=== PATIENT | female | born 1940 | race Caucasian/White ===

== ENCOUNTER 2017-10-21 18:24 | Inpatient (IN) | payer MEDICARE, OTHER, SELFPAY ==
[2017-10-21] VITALS (7 sets, daily range): BP systolic 116–173; BP diastolic 57–110; PULSE 97–107; RESP 20–30; TEMP 36.4–36.9; O2SAT 92–99; BMI 25.7; BMI 24.9
--- NOTE | 2017-10-21 19:08 | EKG12_ITS ---
Test Reason : Blood Pressure : / mmHG Vent. Rate : 094 BPM Atrial Rate : 094 BPM P-R Int : 144 ms QRS Dur : 100 ms QT Int : 382 ms P-R-T Axes : 071 000 061 degrees QTc Int : 477 ms Normal sinus rhythm Nonspecific ST and T wave abnormality Prolonged QT Abnormal ECG Confirmed by GEORGE BOCANEGRA, RONALD ([id number]), senior editor VIPUL GARG ([id number]) on 10/25/2017 1:01:55 PM Referred By: Confirmed By:RONALD VAZQUEZ MD
--- NOTE | 2017-10-21 19:11 | RAD_ITS ---
STUDY: X-RAY CHEST REASON FOR EXAM: Female, 77 years old. Shortness of breath TECHNIQUE: Frontal view of the chest COMPARISON: 07/23/2017 FINDINGS: The lungs are clear. There are no pleural effusions. There is no pneumothorax. The heart is normal in size. The visualized osseous structures are within normal limits. RAD/Chest 1 View (Portable) IMPRESSION: No acute thoracic pathology. Electronically Signed: Rock Johnson, at 19:51 EDT Tel , Service support ,
--- NOTE | 2017-10-21 19:11 | ED.VISSUMM ---
- ER Visit Summary Date of Service: 10/21/17 Chief Complaint: Shortness of breath History of Present Illness: The patient is a 77 F presenting with shortness of breath and wheezing since Saturday. She has dyspnea with exertion. She denies chest pain. She has a productive cough. She denies fever. She has been using her albuterol with no improvement. She has a history of COLD. She sees Dr. Garrison. She wears home O2 as needed. She states she has needed to use O2 more frequently over the last 2 days. Physical Examination: Vitals are stable. Patient is afebrile. Alert no acute distress. HEENT exam is unremarkable. Neck is supple. Lungs are wheezing bilaterally. Heart is regular rate and rhythm. Abdomen is soft nontender nondistended. Extremities are unremarkable. Skin is warm and dry. Maculopapular rash bilateral upper extremities. No focal neurologic deficit. Remainder of exam is unremarkable. Emergency Department Course and Treatment: Patient is given albuterol, Atrovent aerosols. She is given Solu-Medrol IV. EKG is sinus rate of 94 with no acute ischemic changes. EKG is unchanged from previous. Chest x-ray shows no acute process. CBC, chemistries unremarkable other than glucose 121. Troponin is negative. Lactic acid is normal. On repeat exam patient continues to have diffuse wheezing after aerosol treatments. Discussed with Dr. Sales for admission. Disposition: Admission Impression: COPD exacerbation This note was generated with [employer] dictation software. It may contain incorrect words, spelling, and punctuation that were not noted in review of the chart prior to signing ED Disposition - Plan for ED Patient: Chief Complaint: Shortness of Breath Referrals: Zahraa Dick [Primary Care Provider] -
[2017-10-21] MEDS: MethylPREDNISolone 125 MG/2 ML Vial IV (19:19)
[2017-10-21] MEDS: Ipratropium/Albuterol Sulfate 3 ML AMPUL.NEB INHALATION ×2 (19:39→22:40)
[2017-10-21] MEDS: Albuterol 2.5 MG/3 ML VIAL.NEB. INHALATION ×2 (19:40)
[2017-10-21 19:43] LABS: Absolute Lymphocyte Count 1.53 X10^3/ul (0.83-4.51); Absolute Neutrophil Count 5.1 X10^3/uL (2.0-7.7); Basophil# 0.03 X10^3/uL; Basophil% 0.4 % (0-1); Eosinophil# 0.67 X10^3/uL; Eosinophils% 8.1 % (0-5); Hematocrit 41.5 % (37-47); Hemoglobin 12.6 g/dl (12.0-15.0); Lymphocyte # 1.53 X10^3/ul (4.0); Lymphocyte % 18.6 % (19-41); Mean Corp Hgb Conc 30.4 g/gl (32-36); Mean Corpuscular Hgb 28.1 pg (27.0-32.0); Mean Corpuscular Volume 92.6 fL (81-99); Mean Platelet Vol. 11.2 fl (6.2-12.0); Monocyte# 0.91 X10^3/uL; Neutrophil # 5.09 X10^3/uL (2.7-7.7); Neutrophil % 61.8 % (47-70); POSITIVE COUNT NO; POSITIVE DIFFERENTIAL NO; POSITIVE MORPHOLOGY NO; Platelet Count 337 K/mm3 (150-450); RBC Distribution Width CV 14.2 % (11.6-14.6); RBC Distribution Width SD 47.3 fl (35.1-43.9); Red Blood Count 4.48 M/mm3 (4.2-5.4); White Blood Count 8.2 K/mm3 (4.4-11.0)
[2017-10-21 20:01] LABS: Anion Gap 4 (5-15); BUN 8 mg/dL (7-18); BUN/Creat Ratio 11.9 RATIO (10-20); Calcium,Total 8.9 mg/dL (8.5-10.1); Chloride 101 mmol/L (98-107); Creatinine, Serum 0.67 mg/dL (0.55-1.02); EST Glomerular Filtration Rate 90 mL/min (>60); Est Glom Filt Rate - Afr Amer 109 mL/min (>60); Estimated Creatinine Clearance 42.99 ml/min; Glucose 121 mg/dL (74-106); Potassium 4.3 mmol/L (3.5-5.1); Sodium Level 136 mmol/L (136-145)
[2017-10-21 20:19] LABS: Lactic Acid 0.9 mmol/L (0.4-2.0)
--- NOTE | 2017-10-21 21:11 | PCM.HP.STD ---
Problem List (1) COPD exacerbation Status: Acute (2) Osteoarthritis Status: Chronic (3) COLD (chronic obstructive lung disease) Status: Chronic (4) Eczematous dermatitis Status: Chronic Qualifiers: Eczema type: unspecified Qualified Code(s): L30.9 - Dermatitis, unspecified Comment: Antecubital areas History of Present Illness Date of Admission: 10/21/17 Chief Complaint: Cough and wheeze The patient is a 77 year old F with past medical history of COPD who presents with shortness of breath, wheezing since Saturday, unrelieved with her usual inhalers to include Breo, diarrhea, albuterol nebulizer. She wears O2 at nighttime chronically 2 L, has been using it intermittently during the day. She denies fever, has had a productive cough. She follows with Dr. Garrison for COPD. In the emergency department, she was 96-97% on 3 L, heart rate 98, mildly hypertensive which spontaneously improved, respirations 28 improved to 20 after treatment. Laboratories were noncontributory. PA lateral chest x-ray negative. EKG revealed sinus rhythm, nonspecific changes. She received albuterol ?1, DuoNeb aerosol ?1, Solu-Medrol 125 mg IV ?1 feeling improved but still with persistent wheezes. The patient will be admitted for further management of COPD exacerbation. [] Past Medical History Past Medical History (Chronic Problems): Chronic Problems Eczematous dermatitis (Chronic) Antecubital areas Osteoarthritis (Chronic) COLD (chronic obstructive lung disease) (Chronic) Carpal tunnel syndrome (Chronic) Allergies latex Allergy (Verified 10/21/17 18:57) Other Penicillins Allergy (Verified 10/21/17 18:57) Swelling amoxicillin trihydrate [From Augmentin] Adverse Reaction (Verified 10/21/17 18:57) Diarrhea potassium clavulanate [From Augmentin] Adverse Reaction (Verified 10/21/17 18:57) Diarrhea Home Medications: Ambulatory Orders Medication Instructions Recorded Citalopram [Celexa] 10 mg PO DAILY 11/03/14 Fluticasone 0.05% [Flonase Nasal 2 spray NASAL DAILY 11/03/14 [place]] Multivit-Min/FA/Lycopene/Lut 1 each PO DAILY 11/03/14 [Centrum Silver Tablet] Oxygen, Home [Home Oxygen] 2 l INHALATION DAILY 11/04/14 Caltrate-600 With Vit D Tab 1 tablet PO DAILY 06/02/15 Culturelle Capsule 1 capsule PO DAILY 06/02/15 Triamcinolone 0.1% Ointment 1 applicatio EACH EYE DAILY 06/02/15 Albuterol Aerosols [Ventolin 2.5 mg INHALATION Q2H PRN PRN #1 06/03/15 Aerosols] box Albuterol Inhaler [Ventolin Hfa] 2 puff INHALATION Q4H PRN PRN #1 06/03/15 inhaler Guaifenesin [Mucinex] 600 mg PO BID #30 tablet 06/03/15 Pantoprazole Sodium [Protonix] 40 mg PO DAILY #30 tablet 06/03/15 Tiotropium [place] [Spiriva 18 MCG] 1 puff INHALATION DAILY #1 inhaler 06/03/15 Fluticasone/Vilanterol [Breo 1 each IH DAILY 10/21/17 Ellipta 200-25 Mcg INH] Surgical History: - - Carpal tunnel surgery tubal ligation Psychiatric History: No pertinent psych hx 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 Smoking Status: Former smoker - *Family History Maternal History Items: COPD Paternal History Items: No pertinent history, - - Father killed in an automobile accident Sibling History Items: Cancer, Heart Disease Review of Systems Respiratory: Reports: - - as per HPI VTE Information - Inpt Only VTE Present on Admission: No VTE Mechan Device Prophylaxis: SCD's VTE Pharm Prophylaxis ordered?: Yes Patient Problems: Active and Suspected Problems COPD exacerbation (Acute) Subjective: Pleasant female, no acute distress Objective: non toxic appearing - Physical Exam General: Alert, Oriented x3, Cooperative, No apparent distress HEENT: PERRLA, EOMI, TM's Clear, - - pharynx clear Oral: Moist Mucosa, - - upper plates Neck: Supple, No JVD, Negative Carotid Bruits, Negative Hepatojugular Reflux, No Nodes, No Nuchal Rigidity Lungs: Wheezes Cardiovascular: Regular rate, Regular Rhythm, Normal S1, Normal S2 Abdomen: Bowel Sounds Present, Soft, Non Tender, No Hepato-splenomegaly Extremities: No edema Skin: - - Eczematous dermatitis, without secondary infection, bilateral antecubital area, subacute/chronic Vital Signs Temp Pulse Resp BP Pulse Ox 97.5 F L 98 27 H 137/61 H 99 10/21/17 18:25 10/21/17 20:02 10/21/17 20:02 10/21/17 20:02 10/21/17 20:02 Oxygen Flow Rate (L/min) 3 Oxygen Delivery Method Nasal Cannula Weight: 127 lb 6.835 oz Body Mass Index (BMI) 25.7 Laboratory Tests Past 24 Hrs 10/21/17 10/21/17 10/21/17 19:20 19:20 19:20 WBC 8.2 RBC 4.48 Hgb 12.6 Hct 41.5 MCV 92.6 MCH 28.1 MCHC 30.4 L RDW 14.2 RDW Differential 47.3 H Plt Count 337 MPV 11.2 Immature Gran % (Auto) 0.100 Neut % (Auto) 61.8 Lymph % (Auto) 18.6 L Bowie % (Auto) 11.0 H Eos % (Auto) 8.1 H Baso % (Auto) 0.4 Absolute Neuts (auto) 5.1 Absolute Lymphs (auto) 1.53 Total Counted Not Reportable Sodium 136 Potassium 4.3 Chloride 101 Carbon Dioxide 31.0 Anion Gap 4 L BUN 8 Creatinine 0.67 Estim Creat Clear Calc 42.99 Est GFR (MDRD) Af Amer 109 Est GFR (MDRD) Non-Af 90 BUN/Creatinine Ratio 11.9 Glucose 121 H Lactic Acid 0.9 Calcium 8.9 Troponin I < 0.02 Assessment/Plan Active and Suspected Problems COPD exacerbation (Acute) 77-year-old patient with past medical history of chronic obstructive pulmonary disease presents with acute exacerbation of COPD. Chest x-ray is unrevealing. The patient will be admitted for continued medical management of exacerbation. She has nonspecific subacute/chronic eczematous dermatitis of the bilateral antecubital with some evidence of excoriation; will apply topical therapy. 1. AE COPD Pulmonary toilet with O2 titration policy, Mucinex,DUONEB aerosols every 4 hour while awake, intravenous Solu-Medrol Glycemic control prn with NovoLog scale mild to moderate scale prandial/at bedtime whilst on Solu-Medrol doxycycline 100 mg BID # 20 2. Chronic COPD 3. Chronic hypoxemic respiratory failure, on O2 2 L at night 4. Subacute/chronic eczematous dermatitis 5. DVT prophylaxis - SCD, subQ heparin
[2017-10-21 23:05] LABS: Bedside Glucose 197 mg/dL (70-110)
[2017-10-21] MEDS: guaiFENesin 600 MG Tablet PO (23:33)
[2017-10-21] MEDS: Senna/Docusate Sodium 1 Tablet 2 TABLET PO (23:33)
[2017-10-21] MEDS: Doxycycline 100 MG CAPSULE PO (23:33)
[2017-10-21] MEDS: Triamcinolone 0.5% Cream 1 APPLIC TOPICAL (23:45)
[2017-10-22] VITALS (11 sets, daily range): BP systolic 97–133; BP diastolic 57–70; PULSE 74–117; RESP 16–22; TEMP 36.4–36.8; O2SAT 93–98
[2017-10-22] MEDS: Ipratropium/Albuterol Sulfate 3 ML AMPUL.NEB INHALATION ×5 (03:26→23:15)
[2017-10-22 06:34] LABS: Absolute Lymphocyte Count 0.66 X10^3/ul (0.83-4.51); Absolute Neutrophil Count 3.9 X10^3/uL (2.0-7.7); Hematocrit 37.3 % (37-47); Hemoglobin 11.6 g/dl (12.0-15.0); Lymphocyte # 0.66 X10^3/ul (4.0); Lymphocyte % 14.3 % (19-41); Mean Corp Hgb Conc 31.1 g/gl (32-36); Mean Corpuscular Hgb 28.1 pg (27.0-32.0); Mean Corpuscular Volume 90.3 fL (81-99); Mean Platelet Vol. 10.5 fl (6.2-12.0); Monocyte# 0.03 X10^3/uL; Monocyte% 0.6 % (0-10); Neutrophil # 3.93 X10^3/uL (2.7-7.7); Neutrophil % 85.1 % (47-70); Platelet Count 296 K/mm3 (150-450); RBC Distribution Width CV 13.8 % (11.6-14.6); RBC Distribution Width SD 45.7 fl (35.1-43.9); Red Blood Count 4.13 M/mm3 (4.2-5.4); White Blood Count 4.6 K/mm3 (4.4-11.0)
[2017-10-22 06:35] LABS: POSITIVE COUNT NO; POSITIVE DIFFERENTIAL NO; POSITIVE MORPHOLOGY NO
[2017-10-22 06:49] LABS: Anion Gap 8 (5-15); BUN 13 mg/dL (7-18); BUN/Creat Ratio 18.1 RATIO (10-20); Chloride 98 mmol/L (98-107); Creatinine, Serum 0.72 mg/dL (0.55-1.02); EST Glomerular Filtration Rate 84 mL/min (>60); Est Glom Filt Rate - Afr Amer 101 mL/min (>60); Estimated Creatinine Clearance 41.65 ml/min; Glucose 179 mg/dL (74-106); Potassium 4.4 mmol/L (3.5-5.1); Sodium Level 134 mmol/L (136-145)
[2017-10-22 06:51] LABS: Bedside Glucose 215 mg/dL (70-110)
[2017-10-22] MEDS: Budesonide Respules 0.5 MG/2 ML AMPUL.NEB. INHALATION ×2 (07:11→19:12)
[2017-10-22] MEDS: Pantoprazole Sodium 40 MG Tablet PO (08:15)
[2017-10-22] MEDS: guaiFENesin 600 MG Tablet PO ×2 (08:15→22:21)
[2017-10-22] MEDS: Senna/Docusate Sodium 1 Tablet 2 TABLET PO (08:15)
[2017-10-22] MEDS: Multivitamins,Ther W-Minerals Tablet 1 TABLET PO (08:16)
[2017-10-22] MEDS: Citalopram 10 MG Tablet PO (08:16)
[2017-10-22] MEDS: Doxycycline 100 MG CAPSULE PO ×2 (08:16→22:21)
[2017-10-22] MEDS: Triamcinolone 0.5% Cream 1 APPLIC TOPICAL ×2 (08:17→22:21)
[2017-10-22 11:36] LABS: Bedside Glucose 196 mg/dL (70-110)
--- NOTE | 2017-10-22 11:42 | PN_ITS ---
Patient Problems: Active and Suspected Problems COPD exacerbation (Acute) Subjective: CC: Shortness of breath Objective: This is 77-year-old female with history of COPD admitted with acute COPD exacerbation. She reports her breathing has improved with IV steroids bronchodilator and antibiotics. She is not having diarrhea. She denies any abd. pain, fever chills nausea or vomiting. Vitals/I&O's: Vital Signs Temp Pulse Resp BP Pulse Ox 97.6 F L 96 18 129/66 H 94 10/22/17 08:13 10/22/17 10:44 10/22/17 10:44 10/22/17 08:13 10/22/17 08:13 Oxygen Flow Rate (L/min) 2 Oxygen Delivery Method Nasal Cannula Weight: 56 kg Body Mass Index (BMI) 24.9 Intake and Output for Last 24 Hours 10/20/17 10/21/17 10/22/17 23:59 23:59 23:59 Intake Total 1500 / 1500 Balance 1500 / 1500 Microbiology Past 72 Hours 10/22/17 06:40 Sputum, Expectorated/Coughed Gram Stain - Final Laboratory Results 10/21/17 23:02: POC Glucose 197 H 10/22/17 06:12: WBC 4.6, RBC 4.13 L, Hgb 11.6 L, Hct 37.3, MCV 90.3, MCH 28.1, MCHC 31.1 L, RDW 13.8, RDW Differential 45.7 H, Plt Count 296, MPV 10.5, Immature Gran % (Auto) 0.000, Neut % (Auto) 85.1 H, Lymph % (Auto) 14.3 L, Izard % (Auto) 0.6, Eos % (Auto) 0.0, Baso % (Auto) 0.0, Absolute Neuts (auto) 3.9, Absolute Lymphs (auto) 0.66 L, Total Counted Not Reportable 10/22/17 06:12: Sodium 134 L, Potassium 4.4, Chloride 98, Carbon Dioxide 28.0, Anion Gap 8, BUN 13, Creatinine 0.72, Estim Creat Clear Calc 41.65, Est GFR ( MDRD) Af Amer 101, Est GFR (MDRD) Non-Af 84, BUN/Creatinine Ratio 18.1, Glucose 179 H, Calcium 9.0 10/22/17 06:31: POC Glucose 215 H 10/22/17 11:25: POC Glucose 196 H Current Medications Acetaminophen (Tylenol) 650 mg PO Q6H PRN PRN PRN Reason: Mild Pain (scale 0-3)/T>100.7 Al Hydroxide/Mg Hydroxide (Mylanta Ii) 30 ml PO Q6H PRN PRN PRN Reason: Gastric burning Albuterol Sulfate (Ventolin Aerosols) 2.5 mg INHALATION Q2H PRN PRN PRN Reason: DYSPNEA Albuterol/Ipratropium (Duoneb) 3 ml INHALATION Q4H.RT [facility] Last Admin: 10/22/17 10:44 Dose: 3 ml Bisacodyl (Dulcolax) 5 mg PO DAILY PRN PRN PRN Reason: Constipation Budesonide (Pulmicort Aerosol) 0.5 mg INHALATION Q12H.RT [facility] Last Admin: 10/22/17 07:11 Dose: 0.5 mg Citalopram Hydrobromide (Celexa) 10 mg PO DAILY [facility] Last Admin: 10/22/17 08:16 Dose: 10 mg Dextrose (D50w Syringe) 0 gm IV X1 PRN; Protocol PRN Reason: Hypoglycemia Doxycycline Monohydrate (Doxycycline) 100 mg PO BID [facility] Stop: 10/31/17 10:01 Last Admin: 10/22/17 08:16 Dose: 100 mg Glucagon () 1 mg IM .X1 PRN PRN Reason: Hypoglycemia Guaifenesin (Mucinex) 600 mg PO BID [facility] Last Admin: 10/22/17 08:15 Dose: 600 mg Heparin Sodium (Porcine) (Heparin Na) 5,000 unit SC BID [facility] Last Admin: 10/22/17 08:19 Dose: 5,000 u Insulin Aspart (Novolog Flexpen (Bkc)) 0 units SC ACHS [facility] PRN Reason: Protocol Last Admin: 10/22/17 11:27 Dose: 1 u Lactobacillus Acidophilus (Acidophilus) 1 tablet PO DAILY [facility] Last Admin: 10/22/17 08:16 Dose: 1 tablet Magnesium Hydroxide (Milk Of Magnesia) 30 ml PO DAILY PRN PRN PRN Reason: Constipation Melatonin (Melatonin) 3 mg PO QHS PRN PRN PRN Reason: SLEEP Methylprednisolone (Solu-Medrol) 40 mg IV Q8 [facility] Last Admin: 10/22/17 06:40 Dose: 40 mg Multivitamins/Minerals (Multivitamin With Minerals) 1 tablet PO DAILY@0800 [facility] Last Admin: 10/22/17 08:16 Dose: 1 tablet Nutritional Formula (Lactose Free) (Ensure Enlive) 120 ml PO 4X/DAY [facility] Last Admin: 10/22/17 08:16 Dose: 120 ml Ondansetron HCl (Zofran) 4 mg IV Q8H PRN PRN PRN Reason: NAUSEA Pantoprazole Sodium (Protonix) 40 mg PO DAILY [facility] Last Admin: 10/22/17 08:15 Dose: 40 mg Senna/Docusate Sodium (Senokot-S, Fawn-Colace) 2 tablet PO BID [facility] Last Admin: 10/22/17 08:15 Dose: 2 tablet Sodium Chloride () 5 - 30 ml IV UD PRN PRN Reason: SALINE FLUSH Triamcinolone Acetonide (Triamcinolone Acetonide) 1 applic TOPICAL BID [facility] PRN Reason: Protocol Last Admin: 10/22/17 08:17 Dose: 1 applicatio Medical Necessity - Tobacco Use Smoking Status: Former smoker Assessment/Plan Active and Suspected Problems COPD exacerbation (Acute) 1. COPD exacerbation; continue on IV steroids and bronchodilator therapy as well as p.o. doxycycline. 2. Acute diarrhea; will obtain stool for C. difficile 3. Chronic respiratory failure due to COPD we will continue on supplemental oxygen. 4. DVT prophylaxis with subcutaneous heparin
[2017-10-22] MEDS: Glucerna Shake 120 ML LIQUID PO ×3 (14:36→22:22)
[2017-10-22] MEDS: 0.9% NaCl Peripheral Flush Adult/Peds IV ×2 (14:41→22:23)
[2017-10-22 17:46] LABS: Bedside Glucose 162 mg/dL (70-110)
[2017-10-22 22:36] LABS: Bedside Glucose 164 mg/dL (70-110)
[2017-10-23] VITALS (11 sets, daily range): BP systolic 103–148; BP diastolic 51–77; PULSE 81–102; RESP 18–24; TEMP 36.8–37; O2SAT 95–97
[2017-10-23] MEDS: MELATONIN 3 MG TABLET PO (00:51)
[2017-10-23] MEDS: Acetaminophen 325 MG Tablet 650 MG PO (00:52)
[2017-10-23] MEDS: Ipratropium/Albuterol Sulfate 3 ML AMPUL.NEB INHALATION ×6 (03:50→23:22)
[2017-10-23] MEDS: Budesonide Respules 0.5 MG/2 ML AMPUL.NEB. INHALATION (06:49)
[2017-10-23] MEDS: 0.9% NaCl Peripheral Flush Adult/Peds IV (06:57)
[2017-10-23 07:11] LABS: Bedside Glucose 165 mg/dL (70-110)
[2017-10-23] MEDS: Multivitamins,Ther W-Minerals Tablet 1 TABLET PO (07:44)
[2017-10-23] MEDS: Citalopram 10 MG Tablet PO (07:44)
[2017-10-23] MEDS: Pantoprazole Sodium 40 MG Tablet PO (07:44)
[2017-10-23] MEDS: guaiFENesin 600 MG Tablet PO ×2 (10:28→21:12)
[2017-10-23] MEDS: Doxycycline 100 MG CAPSULE PO (10:29)
[2017-10-23] MEDS: Triamcinolone 0.5% Cream 1 APPLIC TOPICAL ×2 (10:34→21:13)
[2017-10-23] MEDS: Glucerna Shake 120 ML LIQUID PO ×4 (10:36→21:12)
[2017-10-23 10:51] LABS: Bedside Glucose 187 mg/dL (70-110)
--- NOTE | 2017-10-23 11:25 | CASEMGMT ---
OLLIE CM assessment complete. See attached link for complete assessment. Transition Planning/Care Coordination: Patient is established with KEVIN Sanchez for primary care. The patient receives oxygen services from [facility]. Prior to admission, patient was only on nocturnal oxygen; may need more frequently as she is on 2 LPM ATC during hospitalization. Patient declines home health. GERRY Arambula, RN-BC, CCM
[2017-10-23] MEDS: levoFLOXacin 750 MG Tablet PO (14:34)
--- NOTE | 2017-10-23 16:45 | PCM.PN.HOSP ---
Patient Problems: Active and Suspected Problems COPD exacerbation (Acute) Subjective: CC: shortness of breath and cough Vitals/I&O's: Vital Signs Temp Pulse Resp BP Pulse Ox 98.4 F 92 20 H 103/57 L 96 10/23/17 14:31 10/23/17 14:31 10/23/17 16:00 10/23/17 14:31 10/23/17 14:31 Oxygen Flow Rate (L/min) 2 Oxygen Delivery Method Nasal Cannula Weight: 56 kg Body Mass Index (BMI) 24.9 Intake and Output for Last 24 Hours 10/21/17 10/22/17 10/23/17 23:59 23:59 23:59 Intake Total 2099 1000 / 1000 Balance 2099 1000 / 1000 General: Alert, Oriented x3 Oral: Moist Mucosa Neck: Supple, No JVD Lungs: Clear to auscultation, No wheeze Cardiovascular: Regular rate, Normal S1, Normal S2 Abdomen: Bowel Sounds Present, Soft, Non Tender Extremities: No edema Microbiology Past 72 Hours 10/22/17 06:40 Sputum, Expectorated/Coughed Gram Stain - Final 10/22/17 06:40 Sputum, Expectorated/Coughed Respiratory Culture - Preliminary Gram negative jp 10/22/17 15:55 Stool C. difficile DNA Amplification - Final Laboratory Results 10/22/17 16:39: POC Glucose 162 H 10/22/17 22:17: POC Glucose 164 H 10/23/17 06:53: POC Glucose 165 H 10/23/17 10:39: POC Glucose 187 H Current Medications Acetaminophen (Tylenol) 650 mg PO Q6H PRN PRN PRN Reason: Mild Pain (scale 0-3)/T>100.7 Last Admin: 10/23/17 00:52 Dose: 650 mg Al Hydroxide/Mg Hydroxide (Mylanta Ii) 30 ml PO Q6H PRN PRN PRN Reason: Gastric burning Albuterol Sulfate (Ventolin Aerosols) 2.5 mg INHALATION Q2H PRN PRN PRN Reason: DYSPNEA Albuterol/Ipratropium (Duoneb) 3 ml INHALATION Q4H.RT [facility] Last Admin: 10/23/17 14:35 Dose: 3 ml Bisacodyl (Dulcolax) 5 mg PO DAILY PRN PRN PRN Reason: Constipation Budesonide (Pulmicort Aerosol) 0.5 mg INHALATION Q12H.RT [facility] Last Admin: 10/23/17 06:49 Dose: 0.5 mg Citalopram Hydrobromide (Celexa) 10 mg PO DAILY [facility] Last Admin: 10/23/17 07:44 Dose: 10 mg Dextrose (D50w Syringe) 0 gm IV X1 PRN; Protocol PRN Reason: Hypoglycemia Glucagon () 1 mg IM .X1 PRN PRN Reason: Hypoglycemia Guaifenesin (Mucinex) 600 mg PO BID [facility] Last Admin: 10/23/17 10:28 Dose: 600 mg Heparin Sodium (Porcine) (Heparin Na) 5,000 unit SC BID [facility] Last Admin: 10/23/17 10:34 Dose: 5,000 u Insulin Aspart (Novolog Flexpen (Bkc)) 0 units SC ACHS [facility] PRN Reason: Protocol Last Admin: 10/23/17 10:40 Dose: 1 u Lactobacillus Acidophilus (Acidophilus) 1 tablet PO DAILY [facility] Last Admin: 10/23/17 07:44 Dose: 1 tablet Levofloxacin (Levaquin Tablet) 750 mg PO Q48H [facility] Last Admin: 10/23/17 14:34 Dose: 750 mg Magnesium Hydroxide (Milk Of Magnesia) 30 ml PO DAILY PRN PRN PRN Reason: Constipation Melatonin (Melatonin) 3 mg PO QHS PRN PRN PRN Reason: SLEEP Last Admin: 10/23/17 00:51 Dose: 3 mg Methylprednisolone (Solu-Medrol) 40 mg IV Q8 [facility] Last Admin: 10/23/17 14:33 Dose: 40 mg Multivitamins/Minerals (Multivitamin With Minerals) 1 tablet PO DAILY@0800 [facility] Last Admin: 10/23/17 07:44 Dose: 1 tablet Nutritional Formula (Lactose Free) (Glucerna Shake) 120 ml PO 4X/DAY [facility] Last Admin: 10/23/17 14:33 Dose: 120 ml Pantoprazole Sodium (Protonix) 40 mg PO DAILY [facility] Last Admin: 10/23/17 07:44 Dose: 40 mg Senna/Docusate Sodium (Senokot-S, Fawn-Colace) 2 tablet PO BID [facility] Last Admin: 10/23/17 10:29 Dose: Not Given Sodium Chloride () 5 - 30 ml IV UD PRN PRN Reason: SALINE FLUSH Last Admin: 10/23/17 06:57 Dose: 10 ml Triamcinolone Acetonide (Triamcinolone Acetonide) 1 applic TOPICAL BID [facility] PRN Reason: Protocol Last Admin: 10/23/17 10:34 Dose: 1 applicatio Medical Necessity - Tobacco Use Smoking Status: Former smoker Assessment/Plan Active and Suspected Problems COPD exacerbation (Acute) 1. COPD exacerbation with acute bronchitis; culture is growing gram-negative rods, we will change to p.o. Levaquin, will continue on bronchodilators and IV steroids. 2. Acute diarrhea;stool for C. difficile is negative, her diarrhea has improved. 3. Chronic respiratory failure due to COPD we will continue on supplemental oxygen. 4. DVT prophylaxis with subcutaneous heparin. 5. Disposition; discharge home soon. Code Visit Inpatient E&M: 47047 Subs Hosp L2
--- NOTE | 2017-10-23 16:48 | PN_ITS ---
Patient Problems: Active and Suspected Problems COPD exacerbation (Acute) Subjective: CC: shortness of breath and cough Vitals/I&O's: Vital Signs Temp Pulse Resp BP Pulse Ox 98.4 F 92 20 H 103/57 L 96 10/23/17 14:31 10/23/17 14:31 10/23/17 16:00 10/23/17 14:31 10/23/17 14:31 Oxygen Flow Rate (L/min) 2 Oxygen Delivery Method Nasal Cannula Weight: 56 kg Body Mass Index (BMI) 24.9 Intake and Output for Last 24 Hours 10/21/17 10/22/17 10/23/17 23:59 23:59 23:59 Intake Total 2099 1000 / 1000 Balance 2099 1000 / 1000 General: Alert, Oriented x3 Oral: Moist Mucosa Neck: Supple, No JVD Lungs: Clear to auscultation, No wheeze Cardiovascular: Regular rate, Normal S1, Normal S2 Abdomen: Bowel Sounds Present, Soft, Non Tender Extremities: No edema Microbiology Past 72 Hours 10/22/17 06:40 Sputum, Expectorated/Coughed Gram Stain - Final 10/22/17 06:40 Sputum, Expectorated/Coughed Respiratory Culture - Preliminary Gram negative jp 10/22/17 15:55 Stool C. difficile DNA Amplification - Final Laboratory Results 10/22/17 16:39: POC Glucose 162 H 10/22/17 22:17: POC Glucose 164 H 10/23/17 06:53: POC Glucose 165 H 10/23/17 10:39: POC Glucose 187 H Current Medications Acetaminophen (Tylenol) 650 mg PO Q6H PRN PRN PRN Reason: Mild Pain (scale 0-3)/T>100.7 Last Admin: 10/23/17 00:52 Dose: 650 mg Al Hydroxide/Mg Hydroxide (Mylanta Ii) 30 ml PO Q6H PRN PRN PRN Reason: Gastric burning Albuterol Sulfate (Ventolin Aerosols) 2.5 mg INHALATION Q2H PRN PRN PRN Reason: DYSPNEA Albuterol/Ipratropium (Duoneb) 3 ml INHALATION Q4H.RT [facility] Last Admin: 10/23/17 14:35 Dose: 3 ml Bisacodyl (Dulcolax) 5 mg PO DAILY PRN PRN PRN Reason: Constipation Budesonide (Pulmicort Aerosol) 0.5 mg INHALATION Q12H.RT [facility] Last Admin: 10/23/17 06:49 Dose: 0.5 mg Citalopram Hydrobromide (Celexa) 10 mg PO DAILY [facility] Last Admin: 10/23/17 07:44 Dose: 10 mg Dextrose (D50w Syringe) 0 gm IV X1 PRN; Protocol PRN Reason: Hypoglycemia Glucagon () 1 mg IM .X1 PRN PRN Reason: Hypoglycemia Guaifenesin (Mucinex) 600 mg PO BID [facility] Last Admin: 10/23/17 10:28 Dose: 600 mg Heparin Sodium (Porcine) (Heparin Na) 5,000 unit SC BID [facility] Last Admin: 10/23/17 10:34 Dose: 5,000 u Insulin Aspart (Novolog Flexpen (Bkc)) 0 units SC ACHS [facility] PRN Reason: Protocol Last Admin: 10/23/17 10:40 Dose: 1 u Lactobacillus Acidophilus (Acidophilus) 1 tablet PO DAILY [facility] Last Admin: 10/23/17 07:44 Dose: 1 tablet Levofloxacin (Levaquin Tablet) 750 mg PO Q48H [facility] Last Admin: 10/23/17 14:34 Dose: 750 mg Magnesium Hydroxide (Milk Of Magnesia) 30 ml PO DAILY PRN PRN PRN Reason: Constipation Melatonin (Melatonin) 3 mg PO QHS PRN PRN PRN Reason: SLEEP Last Admin: 10/23/17 00:51 Dose: 3 mg Methylprednisolone (Solu-Medrol) 40 mg IV Q8 [facility] Last Admin: 10/23/17 14:33 Dose: 40 mg Multivitamins/Minerals (Multivitamin With Minerals) 1 tablet PO DAILY@0800 [facility] Last Admin: 10/23/17 07:44 Dose: 1 tablet Nutritional Formula (Lactose Free) (Glucerna Shake) 120 ml PO 4X/DAY [facility] Last Admin: 10/23/17 14:33 Dose: 120 ml Pantoprazole Sodium (Protonix) 40 mg PO DAILY [facility] Last Admin: 10/23/17 07:44 Dose: 40 mg Senna/Docusate Sodium (Senokot-S, Fawn-Colace) 2 tablet PO BID [facility] Last Admin: 10/23/17 10:29 Dose: Not Given Sodium Chloride () 5 - 30 ml IV UD PRN PRN Reason: SALINE FLUSH Last Admin: 10/23/17 06:57 Dose: 10 ml Triamcinolone Acetonide (Triamcinolone Acetonide) 1 applic TOPICAL BID [facility] PRN Reason: Protocol Last Admin: 10/23/17 10:34 Dose: 1 applicatio Medical Necessity - Tobacco Use Smoking Status: Former smoker Assessment/Plan Active and Suspected Problems COPD exacerbation (Acute) 1. COPD exacerbation with acute bronchitis; culture is growing gram-negative rods, we will change to p.o. Levaquin, will continue on bronchodilators and IV steroids. 2. Acute diarrhea;stool for C. difficile is negative, her diarrhea has improved. 3. Chronic respiratory failure due to COPD we will continue on supplemental oxygen. 4. DVT prophylaxis with subcutaneous heparin. 5. Disposition; discharge home soon. Code Visit Inpatient E&M: 03784 Subs Hosp L2
[2017-10-23 16:50] LABS: Bedside Glucose 134 mg/dL (70-110)
[2017-10-23] MEDS: guaiFENesin 10 ML UDC (200MG/10ML) PO (21:12)
[2017-10-23 21:26] LABS: Bedside Glucose 132 mg/dL (70-110)
[2017-10-24 06:25] VITALS: BP 124/74; PULSE 86; RESP 18; TEMP 36.9; O2SAT 98
[2017-10-24 06:36] LABS: Bedside Glucose 169 mg/dL (70-110)
[2017-10-24] MEDS: guaiFENesin 10 ML UDC (200MG/10ML) PO (06:45)
[2017-10-24 07:29] VITALS: PULSE 78; RESP 18; O2SAT 97
[2017-10-24] MEDS: Budesonide Respules 0.5 MG/2 ML AMPUL.NEB. INHALATION (07:29)
[2017-10-24] MEDS: Ipratropium/Albuterol Sulfate 3 ML AMPUL.NEB INHALATION ×2 (07:29→11:30)
[2017-10-24] MEDS: Triamcinolone 0.5% Cream 1 APPLIC TOPICAL (09:25)
[2017-10-24] MEDS: guaiFENesin 600 MG Tablet PO (09:26)
[2017-10-24] MEDS: Glucerna Shake 120 ML LIQUID PO (09:26)
[2017-10-24] MEDS: Multivitamins,Ther W-Minerals Tablet 1 TABLET PO (09:26)
[2017-10-24] MEDS: Pantoprazole Sodium 40 MG Tablet PO (09:26)
[2017-10-24] MEDS: Citalopram 10 MG Tablet PO (09:26)
[2017-10-24 09:35] VITALS: BP 140/75; PULSE 99; RESP 16; TEMP 36.7; O2SAT 94
--- NOTE | 2017-10-24 10:12 | PCM.DC.SUM ---
Discharge Date and Diagnosis Date of Admission: 10/21/17 Date of Discharge: 10/24/17 - Primary Discharge Diagnosis Active and Suspected Problems COPD exacerbation (Acute) - Secondary Discharge Diagnosis Chronic Problems Eczematous dermatitis (Chronic) Antecubital areas Osteoarthritis (Chronic) COLD (chronic obstructive lung disease) (Chronic) Carpal tunnel syndrome (Chronic) Hospital Course and Treatment Summary of Care Provided: his is 77-year-old female with history of COPD admitted with acute COPD exacerbation. She reports her breathing has improved with IV steroids bronchodilator and antibiotics. She did report diarrhea and C. difficile studies was negative. She Improved and was discharged home in a stable condition. 1. COPD exacerbation; continue on IV steroids and bronchodilator therapy as well as p.o. doxycycline. 2. Acute diarrhea; will obtain stool for C. difficile 3. Chronic respiratory failure due to COPD we will continue on supplemental oxygen. Home Medications: Medications to take at Discharge Citalopram [Celexa] 10 mg PO DAILY 11/03/14 Fluticasone 0.05% [Flonase Nasal [place]] 2 spray NASAL DAILY 11/03/14 Multivit-Min/FA/Lycopene/Lut [Centrum Silver Tablet] 1 each PO DAILY 11/03/14 Oxygen, Home [Home Oxygen] 2 l INHALATION DAILY 11/04/14 Caltrate-600 With Vit D Tab 1 tablet PO DAILY 06/02/15 Culturelle Capsule 1 capsule PO QODAY 06/02/15 Albuterol Aerosols [Ventolin Aerosols] 2.5 mg INHALATION Q2H PRN PRN #1 box 06/03/15 Albuterol Inhaler [Ventolin Hfa] 2 puff INHALATION Q4H PRN PRN #1 inhaler 06/03/15 Guaifenesin [Mucinex] 600 mg PO BID #30 tablet 06/03/15 Pantoprazole Sodium [Protonix] 40 mg PO DAILY #30 tablet 06/03/15 Tiotropium [place] [Spiriva 18 MCG] 1 puff INHALATION DAILY #1 inhaler 06/03/15 Fluticasone/Vilanterol [Breo Ellipta 200-25 Mcg INH] 1 each IH DAILY 10/21/17 Prednisone [Deltasone] 40 mg PO DAILY #10 tab 10/24/17 levoFLOXacin tablet [Levaquin tablet] 750 mg PO Q48H #5 tab 10/24/17 Following Prescrptions Were Given to Patient: levoFLOXacin tablet [Levaquin tablet] 750 mg PO Q48H #5 tab Prednisone [Deltasone] 40 mg PO DAILY #10 tab Primary Care Physician: Zahraa Dick [Primary Care Provider] - Medical Necessity - Tobacco Use Smoking Status: Former smoker Meaningful Use Info Meaningful Use Diagnoses (Choose all that apply): None applicable Code Visit Inpatient E&M: 67859 Disch Hosp
[2017-10-24 11:30] VITALS: PULSE 85; RESP 18
[2017-10-24 11:30] LABS: Bedside Glucose 155 mg/dL (70-110)
== END 2017-10-24 12:23 | disposition home or self-care (01) | DRG 191 ==
LOC: ED 20:54 → MS2 21:37
PROVIDERS: Admitting Provider Internal Medicine; Emergency Provider Emergency Medicine; Family Provider Nurse Practitioner; PCP Nurse Practitioner; Visit Provider Internal Medicine
DX: J44.1 Chronic obstructive pulmonary disease with (acute) exacerbation (principal); J96.11 Chronic respiratory failure with hypoxia; J20.9 Acute bronchitis, unspecified; J44.0 Chronic obstructive pulmonary disease with (acute) lower respiratory infection; R19.7 Diarrhea, unspecified; M19.90 Unspecified osteoarthritis, unspecified site; L30.9 Dermatitis, unspecified; Z79.899 Other long term (current) drug therapy; Z87.891 Personal history of nicotine dependence; Z99.81 Dependence on supplemental oxygen
CPT/HCPCS: 36415; 71045; 80048; 82962; 83605; 84484; 85025; 87070; 87077; 87186; 87205; 87493; 93005; 94640; 97162; 97165; 97530; 97802; 99251; 99284; A4216; G0463

== ENCOUNTER 2018-03-27 10:30 | Outpatient (RCR) | payer MEDICARE, OTHER, SELFPAY ==
--- NOTE | 2018-03-06 13:59 | HP.PTEVAL ---
Patient's Visit Information QUYNH LIN is a 78 year old F referred to Physical Therapy by Cira Fontaine with a diagnosis of LBP. Date of Evaluation: 03/06/18 Physical Therapist: Addy Liz, PT, - Visit Plan Frequency: 2x /Week Duration: 3 Weeks Plan: Postural education, core stab ex's, nustep, LE strengthening, gait, and HEP - Subjective Subjective: DOS: 08/06/17. Pt reports she had L/S surgery at that time to get pressure off her nerves. Pt reports she was doing so well that she never had PT. However, pt notes she has recently began to experience some LBP, especially if she goes on a walk. Pt notes as she walks for a long distance, she will begin to notice weakness in her core and legs. Pt believes she has not been active lately, and thinks all the inactiivity is causing her to have LBP. No T or N at this time in LE's. No sleep diff secondary to pain. 0/10 pain at rest, 4/10 at worst (prolonged sitting at home). - Pain LBP Pain Intensity (Out of 10): 0 Pain Intensity Range: 4 - Objective Neuro: B LE ssensation is WNL to light touch. B patellar reflex= 3/3. MMT: B LE's 5/5 throughout. Gait: Pt was able to ambulate greater than 1000 ft without feeling fatigued. SLS: Pos display of trendelenbug indicating core weakness - Goals Goal 1:: Increase core stability x 1 grade to aid with decreasing LBP Goal Time Frame: 2-4 Weeks Goal 2:: Decrease LBP x 1 grade to aid with increasing ash for ambulation Goal Time Frame: 2-4 Weeks Goal 3:: I with HEP Goal Time Frame: 2-4 Weeks - Rehabilitation Potential Physical Therapy Diagnosis: LBP and coreweakness secondary to having L/S surgery Rehabilitation Potential: Good - Anticipated Interventions Patient/Client Instruction: Educate patient on: Condition, Plan of Care For the Purpose of:: To improve self management Therapeutic Exercise to Include: Strength training, Endurance training, Body mechanics, Postural training, Gait and locomotor training, Dynamic Lumbar Stabilization For the Purpose of:: To decrease pain, To improve muscle performance and motor function Cryotherapy (ice pack, ice massage): Yes For the Purpose of:: To decrease pain Thank you for the opportunity to evaluate your patient. For Medicare and Medicare HMO plans, please review the plan of care and approve it. It will need to be FAXED BACK to us at [phone] for Medicare purposes. Please let me know if there are questions or concerns regarding this plan of care. Physician Signature: Date:
--- NOTE | 2018-03-27 11:38 | HP.PTDCSUM ---
HP - PT D/C Summary It has been my pleasure to treat QUYNH LIN under orders from Cira Fontaine, for the diagnosis of LBP for a total of 7 visit(s). Discharge Date: Please see the following information for a summary of their discharge status. - Subjective Subjective: No pain this date. Pt is ready for discharge - Pain LBP Pain Intensity (Out of 10): 0 - Overall Improvement % Improvement: 90 - Objective Objective/Function: 0/10 LBP this date. Pt reports 90% improvement at this time. Pt has returned to dancing at her premorbid level. I with HEP. Rx goals achieved. - Goals Goal 1:: Increase core stability x 1 grade to aid with decreasing LBP Goal Progress: Goal Met Goal 2:: Decrease LBP x 1 grade to aid with increasing ash for ambulation Goal Progress: Goal Met Goal 3:: I with HEP Goal Progress: Goal Met - Plan Plan: Discharge - D/C Information If there are questions or concerns regarding this patient's physical therapy, please feel free to call me at [phone]. Thank you for the referral of this patient. Sincerely, Addy Liz, PT,
== END 2018-03-27 16:04 | disposition home or self-care (01) ==
LOC: PT 10:30
PROVIDERS: Family Provider Nurse Practitioner; PCP Nurse Practitioner; Visit Provider Orthopaedic Surgery
DX: M54.5 Low back pain (principal)
CPT/HCPCS: 97110; 97161; 97530

== ENCOUNTER → 2018-11-28 15:08 | Outpatient (CLI) | payer MEDICARE, OTHER, SELFPAY ==
--- NOTE | 2018-11-28 15:14 | RAD_ITS ---
STUDY: X-RAY - CERVICAL SPINE REASON FOR EXAM: Female, 78 years old. Right-sided neck pain for long time TECHNIQUE: 5 view(s) of the cervical spine were obtained. COMPARISON: None FINDINGS: Normal anterior atlantoaxial articulation. Normal odontoid process. Normal cervical lordosis. There is multi-level endplate spondylosis. There is multi-level degenerative disc disease with multilevel disc space narrowing. There is multi-level osseous foraminal stenosis. The soft tissue structures are unremarkable. RAD/Cerv Spine 4 or 5 Views IMPRESSION: Moderate to severe degenerative disc disease of the C-spine Electronically Signed: Ned Ceja DO at 11:08 EDT Tel , Service support ,
== END ==
PROVIDERS: Family Provider Nurse Practitioner; PCP Nurse Practitioner; Referring Provider Nurse Practitioner; Visit Provider Nurse Practitioner
DX: M54.2 Cervicalgia (principal)
CPT/HCPCS: 72050

== ENCOUNTER → 2020-02-16 14:19 | Outpatient (CLI) | payer MEDICARE, OTHER, SELFPAY ==
--- NOTE | 2020-02-16 14:23 | BI_ITS ---
MAMMOGRAPHY - BILATERAL SCREENING REASON FOR EXAM: Female, 80 years old. Routine annual screening examination. PERTINENT HISTORY: Aunt with breast cancer. TECHNIQUE: Digital bilateral breast brandi (3D mammographic acquisition) in the CC and MLO projections. 2-D mediolateral oblique (MLO) and craniocaudad (CC) views of both breasts were obtained. CAD: Full Field Digital Mammography with Computer Added Detection was performed. COMPARISON: Comparison is made with prior examination dated 12-18-16 and 11-24-09. FINDINGS: Breast Composition: There are scattered areas of fibroglandular density. There are no dominant masses or suspicious calcifications. No other significant abnormalities are identified. There has been no significant change since the prior study. BI/SCREEN MAMM (CAD) W/BRANDI BILAT IMPRESSION: Stable bilateral screening mammogram. Yearly follow-up mammogram recommended. (A) ASSESSMENT CATEGORY: BIRADS Category 1: Negative. A letter regarding these results will be sent to the patient by the facility within 30 days. Approximately 10% of breast cancers are not detected by mammography. A normal mammogram should not delay biopsy of a clinically suspicious abnormality. [id number] Electronically Signed: Chuck Evangelista, at 15:31 EDT , Service support ,
--- NOTE | 2020-02-16 14:49 | BD_ITS ---
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 COMPARISON: Comparison is made with prior examination dated 12/18/2016. FINDINGS: Lumbar Spine (L1-L4): g/cm2 (1.127) / T-score (-0.3) / Z-score (1.5) Findings are suggestive of normal bone density with a low fracture risk. Left Femur Total: g/cm2 (0.842) / T-score (-1.3) / Z-score (0.7) Left Femoral Neck: g/cm2 (0.716) / T-score (-2.3) / Z-score (-0.2) Right Femur Total: g/cm2 (0.815) / T-score (-1.5) / Z-score (0.5) Right Femoral Neck: g/cm2 (0.701) / T-score (-2.4) / Z-score (-0.3) The T-Scores on the most recent prior examination were: Lumbar Spine (L1-L4): There has been improvement of bone density since the previous examination. Left Femur Total: which represents a worsening of 1.3%. Right Femur Total: which represents a worsening of 1.8%. BD/Dexa Bone Density Study IMPRESSION: The patient is considered osteopenic as outlined below according to World Sergio Organization (WHO) criteria with a high fracture risk. There has been worsening of bone density since the previous examination. Reference Information: The T-score is the number of standard deviations above or below the standard which is normal for young adults at their peak bone mineral density. The World Health Organization (WHO) interprets the T-scores as follows: Above -1 Normal bone density Between -1 and -2.5 Osteopenia Equal to / or below -2.5 Osteoporosis As a practical clinical guideline, osteopenia may be graded as follows: Mild -1 through -1.5 Moderate -1.6 through -2.0 Severe -2.1 through -2.4 The Z-score is the number of standard deviations above or below age-matched controls. A Z-score of less than -1.5 would be considered abnormal. References: 1. NIH Osteoporosis and Related Bone Diseases http://www.osteo.org 2. International Society for Clinical Densitometry http://www.iscd.org 3. National Osteoporosis Foundation http://www.nof.org Electronically Signed: Chuck Evangelista, at 12:41 EDT , Service support ,
== END ==
PROVIDERS: PCP Nurse Practitioner; Referring Provider Nurse Practitioner; Visit Provider Nurse Practitioner
DX: Z12.31 Encounter for screening mammogram for malignant neoplasm of breast (principal); Z78.0 Asymptomatic menopausal state
CPT/HCPCS: 77063; 77067; 77080

== ENCOUNTER 2020-04-04 15:46 | Emergency (ER) | payer MEDICARE, OTHER, SELFPAY ==
[2020-04-04 15:48] VITALS: BP 117/70; PULSE 88; PULSE 90; RESP 17; RESP 22; TEMP 36.3; O2SAT 95; BMI 25.4
--- NOTE | 2020-04-04 16:09 | CT_ITS ---
STUDY: CT ABDOMEN AND PELVIS WITH CONTRAST REASON FOR EXAM: Female, 80 years old. WEAKNESS, SOB, DIARRHEA, EVERYTHING TASTES LIKE METAL, CHILLS, COPD, BARRETS ESOPHAGUS, PREV LUMBAR LAMINECTOMY, COVID PRECAUTIONS RADIATION DOSAGE (If Supplied By Facility): CTDIvol = ( 12.8 ) mGy, DLP = ( 647.12 ) mGycm TECHNIQUE: Transaxial images were obtained from the dome of the diaphragm to the symphysis pubis with oral contrast. Oral and amp; IV Gastrografin and amp; 100mL Isovue-370 was administered. Sagittal and coronal images were reconstructed. Individualized dose optimization techniques were used for this CT. COMPARISON: CT of the chest dated May 28, 2017. FINDINGS: Mild consolidation is present in right lower lobe lung base. Minimal consolidation is seen in the left lung base. No free air or free fluid. No bowel obstruction. No hydronephrosis. No inflammatory stranding. Normal liver. Normal gallbladder and extrahepatic biliary system. Normal spleen. Normal pancreas. Normal bilateral adrenal glands. Normal right kidney. Normal left kidney. There is a large hiatal hernia composed mostly of the fundus of the stomach. Normal small intestine. A single small diverticulum of the proximal sigmoid colon is present. Normal remaining colonic loops. The appendix is visualized and appears normal. There is diffuse atherosclerotic calcification of the abdominal aorta, without a demonstrated aneurysm. Normal inferior vena cava. Normal retroperitoneum. Normal urinary bladder. Grossly unremarkable uterus and adnexa. Normal abdominal wall. There are diffuse degenerative changes of the visualized lumbar spine. CT/Abdomen/Pelvis WITH Contrast IMPRESSION: 1. Right lower lobe pneumonia = Mild consolidation is present in right lower lobe lung base. Minimal consolidation is seen in the left lung base. 2. No acute or significant process of the abdomen and pelvis. 3. Large hiatal hernia. Electronically Signed: Arthur Cardenas MD at 18:42 EDT , Service support ,
--- NOTE | 2020-04-04 16:09 | EKG12_ITS ---
Test Reason : DIARHEA Blood Pressure : / mmHG Vent. Rate : 082 BPM Atrial Rate : 082 BPM P-R Int : 144 ms QRS Dur : 112 ms QT Int : 382 ms P-R-T Axes : 037 -30 065 degrees QTc Int : 446 ms Normal sinus rhythm Left axis deviation Incomplete right bundle branch block Nonspecific ST abnormality Abnormal ECG Confirmed by SHREE BOCANEGRA, JOSR ([id number]), food editor SHAUNA LAY ([id number]) on 04/06/2020 11:09:20 AM Referred By: FREDIS Confirmed By:JOSR SWANN MD
--- NOTE | 2020-04-04 16:11 | ED.VIS.GEN ---
History of Present Illness Chief Complaint: Diarrhea Informant: Patient Onset: Weeks Context: Gradual Onset Current Severity: Mild Maximum Severity: Moderate Narrative: Patient presents with 2-week history of progressive weakness with frequent episodes of diarrhea. She does report subjective fevers intermittently. She reports intermittent left upper quad abdominal pain that sometimes radiates up into the left chest. She states when she tries to eat or drink everything tastes like it is metallic. She called her PCP who recommended she try some Pedialyte to make sure she stays hydrated and if not improved to come the emergency room. Patient states that she just wants to feel better so she came to the ER. She denies known exposure to anyone with Covid. She does have a history of COPD and reports mild increase in shortness of breath over the past couple of days. She has a mild cough with yellow sputum production. - Past Medical History (1) GERD (gastroesophageal reflux disease) Status: Chronic (2) COLD (chronic obstructive lung disease) Status: Chronic Past Medical History - Allergies and Home Meds Allergies/Adverse Reactions: Allergies latex Allergy (Verified 04/04/20 15:47) Other Penicillins Allergy (Verified 04/04/20 15:47) Swelling amoxicillin trihydrate [From Augmentin] Adverse Reaction (Verified 04/04/20 15:47) Diarrhea potassium clavulanate [From Augmentin] Adverse Reaction (Verified 04/04/20 15:47) Diarrhea Primary Care Physician: Zahraa Dick CRACKER AND COOKIE MACHINE OPERATOR, CRACKER AND COOKIE MACHINE OPERATOR-C [Primary Care Provider] - Prior records reviewed: Yes Surgical History: - - Carpal tunnel surgery tubal ligation, partial colectomy Lives: Spouse/ Significant Other Smoking Status: Former smoker - Family History Maternal Family History: Reports: COPD Paternal Family History: Reports: No pertinent history, - - Father killed in an automobile accident Sibling Family History: Reports: Cancer, Heart Disease Review of Systems General: Reports: Fever, Subjective Eyes: Denies: Visual changes - bilaterally ENT: Denies: Bilateral ear pain Cardiovascular: Reports: Chest pain Respiratory: Reports: Dyspnea, Cough, Sputum Gastrointestinal: Reports: Abdominal pain, Diarrhea. Denies: Vomiting Genitourinary: Denies: Dysuria Musculoskeletal: Denies: Swelling, Extremity Pain Skin: Denies: Rash Neurological: Denies: Headache Hematologic: Denies: Easy bruising, Easy bleeding Allergy: Denies: Uticaria Physical Exam Vital Signs/Narrative: Vital Signs Temp Pulse Resp BP Pulse Ox 04/04/20 15:48 97.3 F L 88 17 117/70 95 Inital Vital Signs reviewed: Yes General: Well nourished, Well developed Head: Normocephalic ENT: Moist mucous membranes Neck: Supple Cardiovascular: Regular rate, Regular rhythm Respiratory: No distress, CTA bilaterally Abdomen: Soft, Nontender, Normal bowel sounds Extremities: Nontender Skin: Normal color Neurological: Alert, Oriented x3, Normal Strength, Normal Sensation Psychological: Normal affect Diagnostic/Tx/Re-eval Impressions Abdomen/Pelvis CT 04/04/20 16:09 IMPRESSION: 1. Right lower lobe pneumonia = Mild consolidation is present in right lower lobe lung base. Minimal consolidation is seen in the left lung base. 2. No acute or significant process of the abdomen and pelvis. 3. Large hiatal hernia. Electronically Signed: Arthur Cardenas MD at 18:42 EDT , Service support , 04/04/20 16:09 Abdomen/Pelvis WITH Contrast [CT] Stat Laboratory Results 04/04/20 04/04/20 04/04/20 16:40 16:40 20:00 WBC 6.5 RBC 4.32 Hgb 12.7 Hct 38.8 MCV 89.8 MCH 29.4 MCHC 32.7 RDW Std Deviation 43.8 RDW Coeff of Radha 13.2 Plt Count 255 MPV 10.5 Immature Gran % (Auto) 0.300 Neut % (Auto) 77.8 H Lymph % (Auto) 10.8 L [place] % (Auto) 11.1 H Eos % (Auto) 0.0 Baso % (Auto) 0.0 Absolute Neuts (auto) 5.1 Absolute Lymphs (auto) 0.70 L Nucleated RBC % 0 Sodium 133 L Potassium 3.8 Chloride 99 Carbon Dioxide 27.0 Anion Gap 7 BUN 9 Creatinine 0.85 Estim Creat Clear Calc 47.75 Est GFR (MDRD) Af Amer 82 Est GFR (MDRD) Non-Af 68 BUN/Creatinine Ratio 10.6 Glucose 106 Calcium 8.6 Total Bilirubin 0.40 Direct Bilirubin 0.17 AST 23 ALT 15 Alkaline Phosphatase 69 Troponin I < 0.015 Total Protein 7.7 Albumin 2.8 L Globulin 4.9 H Lipase 163 Urine Color Yellow Urine Clarity Clear Urine pH 6.5 Ur Specific [place] 1.010 Urine Protein Negative Urine Glucose (UA) Normal Urine Ketones 15 H Urine Occult Blood Negative Urine Nitrite Negative Urine Bilirubin Negative Urine Urobilinogen Normal Ur Leukocyte Esterase Negative Urine RBC 0 SEEN Urine WBC 0 SEEN Ur Squamous Epith Cells 0 SEEN Urine Bacteria 0 SEEN Urine Mucus 0 SEEN - EKG Initial EKG Interpretation: Sinus Rhythm - Sinus at 82 with incomplete right bundle branch block. Unchanged when compared to prior study of October 21, 2017. - Medical Decision Making Covid swab was obtained and sent as a send out test. Blood work is unremarkable. Urine is not infected. CT scan shows no acute intra-abdominal findings. There is potential right lower lobe infiltrate. Patient has noted increased shortness of breath over the past couple of days and will be treated with a course of doxycycline. ED Disposition - Plan for ED Patient: Disposition: Home or Assisted Living Diagnosis: Pneumonia, Diarrhea Instructions: ED Viral Syndrome, Pneumonia Prescriptions: Doxycycline 100 mg PO BID #20 cap Transmission Status: Pending to [id number] Referrals: Zahraa Dick NP, CRACKER AND COOKIE MACHINE OPERATOR-C [Primary Care Provider] - 5-7 Days
[2020-04-04] MEDS: 0.9% Normal Saline 1,000 ML 150 ML IV (16:34)
[2020-04-04 16:52] LABS: Absolute Neutrophil Count 5.1 X10^3/uL (2.0-7.7); Hematocrit 38.8 % (37-47); Hemoglobin 12.7 g/dL (12.0-15.0); Lymphocyte % 10.8 % (19-41); Mean Corp Hgb Conc 32.7 g/dL (32-36); Mean Corpuscular Hgb 29.4 pg (27.0-32.0); Mean Corpuscular Volume 89.8 fL (81-99); Mean Platelet Vol. 10.5 fl (6.2-12.0); Monocyte# 0.72 X10^3/uL; Monocyte% 11.1 % (0-10); NRBC Flagged by Analyzer 0 % (0-5); Neutrophil # 5.06 X10^3/uL (2.7-7.7); Neutrophil % 77.8 % (47-70); Platelet Count 255 K/mm3 (150-450); RBC Distribution Width CV 13.2 % (11.6-14.6); RBC Distribution Width SD 43.8 fl (35.1-43.9); Red Blood Count 4.32 M/mm3 (4.2-5.4); White Blood Count 6.5 K/mm3 (4.4-11.0)
[2020-04-04 17:12] LABS: AST(SGOT) 23 U/L (15-37); Alanine Aminotransfer ALT/SGPT 15 U/L (13-56); Albumin, Serum 2.8 g/dL (3.2-5.0); Alkaline Phosphatase 69 U/L (45-117); Anion Gap 7 (5-15); BUN 9 mg/dL (7-18); BUN/Creat Ratio 10.6 RATIO (10-20); Bilirubin, Direct 0.17 mg/dL (0.00-0.30); Calcium,Total 8.6 mg/dL (8.5-10.1); Chloride 99 mmol/L (98-107); Creatinine, Serum 0.85 mg/dL (0.55-1.02); EST Glomerular Filtration Rate 68 mL/min (>60); Est Glom Filt Rate - Afr Amer 82 mL/min (>60); Estimated Creatinine Clearance 47.75 ml/min; Globulin 4.9 g/dL (2.2-4.2); Glucose 106 mg/dL (74-106); Lipase 163 U/L (73-393); Potassium 3.8 mmol/L (3.5-5.1); Protein, Total 7.7 g/dL (6.4-8.2); Sodium Level 133 mmol/L (136-145)
[2020-04-04 20:01] VITALS: BP 119/61; PULSE 73; RESP 20; O2SAT 99
[2020-04-04 20:13] LABS: Bacteria 0 SEEN /hpf (None Seen); Mucous, Urine 0 SEEN /hpf (<or=2+); Red Blood Cells-Urine 0 SEEN /hpf (0-5); Squamous Epithelial Cells - UA 0 SEEN /hpf (5-10); White Blood Cells 0 SEEN /hpf (0-5)
[2020-04-04 20:14] LABS: Color, Urine Yellow (Yellow); Glucose, Dipstick Normal (Normal); Ketone-Dipstick 15 mg/dl (Negative); Leukocyte Esterase-Dipstick Negative /ul (Negative); Nitrite-Dipstick Negative (Negative); Occult Blood-Urine Negative /ul (Negative); Protein-Dipstick Negative (Negative); Urine Bilirubin Dipstick Negative (Negative); Urine Clarity Clear (Clear); Urine Urobilinogen Normal (Normal); Urine pH 6.5 (5.0 - 8.0)
[2020-04-04 21:23] VITALS: BP 106/63; PULSE 73; RESP 24; TEMP 37.7
[2020-04-04] MEDS: Doxycycline 100 MG CAPSULE PO (21:29)
== END 2020-04-04 21:55 | disposition home or self-care (01) ==
PROVIDERS: Emergency Provider Emergency Medicine; PCP Nurse Practitioner
DX: J18.9 Pneumonia, unspecified organism (principal); R19.7 Diarrhea, unspecified; Z87.891 Personal history of nicotine dependence
CPT/HCPCS: 36415; 74177; 80048; 80076; 81001; 83690; 84484; 85025; 87635; 93005; 96360; 96361; 99285; J7030; Q9967; A4216; U0003

== ENCOUNTER → 2022-08-01 | Outpatient (CLI) | payer MEDICARE, OTHER, SELFPAY ==
--- NOTE | 2022-08-01 14:33 | RAD_ITS ---
INDICATION: DYSPNEA EXAMINATION/TECHNIQUE: X-RAY - XR Chest 2 Views COMPARISON: October 21, 2017 FINDINGS: LINES/DEVICES: None. LUNGS: Mild chronic interstitial changes at the lung bases. No focal infiltration or pleural effusion.. No pneumothorax. MEDIASTINUM AND CARDIOVASCULAR STRUCTURES: Cardiac silhouette not enlarged. Central airways and mediastinal contour are unremarkable. BONES AND SOFT TISSUES: Unremarkable. No significant change since prior exam RAD/Chest PA and Lateral IMPRESSION: Mild chronic bibasilar interstitial thickening Electronically Signed: Nabor Brock MD at 21:16 EST ,
== END | disposition home or self-care (01) ==
LOC: MTRAD 14:31
PROVIDERS: PCP Physician Assistant; Referring Provider Internal Medicine Pulmonary Disease; Visit Provider Internal Medicine Pulmonary Disease
DX: R06.00 Dyspnea, unspecified (principal); R05.9 Cough, unspecified
CPT/HCPCS: 71046

== ENCOUNTER → 2023-04-16 | Outpatient (CLI) | payer MEDICARE, OTHER, SELFPAY | END | disposition home or self-care (01) | LOC: MTLAB 15:39 | PROVIDERS: PCP Physician Assistant; Referring Provider Internal Medicine Pulmonary Disease; Visit Provider Internal Medicine Pulmonary Disease | DX: R05.9 Cough, unspecified (principal) | CPT/HCPCS: 87070; 87205 ==

== ENCOUNTER 2023-06-25 13:07 | Inpatient (IN) | payer MEDICARE, OTHER, SELFPAY ==
[2023-06-25] VITALS (11 sets, daily range): BP systolic 110–125; BP diastolic 60–92; PULSE 87–105; RESP 18–31; TEMP 36.4–37.1; O2SAT 92–96; BMI 28.6; BMI 25.9
--- NOTE | 2023-06-25 13:26 | ED.VIS.DYS ---
HPI History of Present Illness Chief Complaint: Shortness of Breath Informant: patient Narrative Narrative: 83-year-old female with COPD on 2 L of home oxygen mostly at night, as needed during the day, has had about a week of increased cough, shortness of breath, sputum color changed to green and increased production, no hemoptysis, no chest pain, subjective fevers and chills early on but those have gone away. No leg pain or swelling. No orthopnea. Increased weakness. Try to see the doctor today, diverted to urgent care, who in turn diverted her here to the ER. [facility] Medical History (Updated 06/25/23 @ 15:[address] Gene Paula MD) COPD (chronic obstructive pulmonary disease) Home Medications citalopram 10 mg tablet 10 mg PO DAILY depression 11/03/14 [History Last Taken 06/24/23] jgjcfode-ihy-cvwiv acid 0.4 mg-lycopene 300 mcg-lutein 250 mcg tablet 1 ea PO DAILY 11/03/14 [History Last Taken 06/24/23] Oxygen, Home [Home Oxygen] 2 l inhalation DAILY 11/04/14 [History Last Taken Unknown] Culturelle Capsule 1 cap PO QODAY probiotic 06/02/15 [History Last Taken 06/24/23] albuterol sulfate 2.5 mg/3 mL (0.083 %) solution for nebulization 2.5 mg (3 mL) inhalation Q2H PRN PRN DYSPNEA ##1 06/03/15 [Rx Last Taken 06/24/23] albuterol sulfate 90 mcg/actuation aerosol inhaler 2 puff inhalation Q4H PRN PRN Shortness Of Breath ##1 06/03/15 [Rx Last Taken 06/24/23] guaifenesin 600 mg tablet, extended release 12 hr 600 mg PO BID #30 tabs 06/03/15 [Rx Last Taken 06/24/23] pantoprazole 40 mg tablet,delayed release 40 mg PO DAILY #30 tabs 06/03/15 [Rx Last Taken 06/24/23] tiotropium bromide 18 mcg capsule with inhalation device 1 puff inhalation DAILY ##1 06/03/15 [Rx Last Taken 06/24/23] fluticasone furoate 200 mcg-vilanterol 25 mcg/dose inhalation powder 1 ea IH DAILY COPD 10/21/17 [History Last Taken 06/24/23] dupilumab 300 mg/2 mL subcutaneous syringe (Dupixent) 300 mg subcut QWEEK 06/25/23 [History Last Taken Unknown] Allergy/AdvReac Type Severity Reaction Status Date / Time latex Allergy Other Verified 06/25/23 13:08 Penicillins Allergy PT UNSURE Verified 06/25/23 13:08 OF REACTION amoxicillin trihydrate AdvReac Diarrhea Verified 06/25/23 13:08 [From Augmentin] potassium clavulanate AdvReac Diarrhea Verified 06/25/23 13:08 [From Augmentin] Surgical History s/p lumbar surgery Social History (Updated 08/03/18 @ 15:[address] Cira Fontaine MD) Smoking Status: Former smoker ROS ROS ED Constitutional Constitutional ED: Reports chills, fever(s) and malaise Eyes Eyes: Denies change in vision or diplopia ENT ENT ED: Denies rhinorrhea or sore throat Cardiovascular Cardiovascular: Denies chest pain, leg edema or palpitations Respiratory/Chest Respiratory/Chest: Reports cough and dyspnea Gastrointestinal Gastrointestinal: Denies abdominal pain, diarrhea, nausea or vomiting Genitourinary Genitourinary ED: Denies dysuria or hematuria Musculoskeletal Musculoskeletal: Denies back pain or neck pain Integumentary Denies abscess or rash Neurologic Neurologic: Denies headache(s), paresthesias or weakness Psychiatric Psychiatric: Denies anxiety or suicidal thoughts EXAM Physical Exam Const Vital Signs: 06/25/23 13:08 06/25/23 13:37 06/25/23 13:37 Temperature 98.8 F Temperature Source Temporal Pulse Rate 97 Respiratory Rate 29 H Respiratory Effort Short of Breath Respiratory Pattern Tachypnea Blood Pressure 122/64 H Blood Pressure Mean 83 Pulse Ox 95 92 Oxygen Delivery Method Nasal Cannula Nasal Cannula Nasal Cannula Oxygen Flow Rate (L/min) 2 2 2 06/25/23 13:53 06/25/23 15:04 06/25/23 15:13 Temperature Temperature Source Pulse Rate 88 92 103 H Respiratory Rate 25 H 24 H 23 H Respiratory Effort Respiratory Pattern Tachypnea Tachypnea Blood Pressure 125/92 H Blood Pressure Mean 103 Pulse Ox 95 Oxygen Delivery Method Nasal Cannula Oxygen Flow Rate (L/min) 2 06/25/23 15:56 06/25/23 15:58 Temperature 98.8 F Temperature Source Temporal Pulse Rate 105 H 105 H Respiratory Rate 31 H 31 H Respiratory Effort Respiratory Pattern Blood Pressure 113/60 113/60 Blood Pressure Mean 77 77 Pulse Ox 94 94 Oxygen Delivery Method Nasal Cannula Oxygen Flow Rate (L/min) 2 Positive well nourished and well developed General Appearance ED: well developed and NAD HEENT Reports moist mucous membranes normocephalic and atraumatic Eyes PERRL and EOMs intact bilaterally Neck full ROM, supple and no JVD Resp Resp Narrative: No respiratory distress. Diffuse end expiratory wheezes. Diminished throughout symmetrically. Trachea midline. No rales or rhonchi. Cardio regular rate, regular rhythm and no murmurs Rate: Negative for tachycardic GI non-tender and non-distended Auscultation: normoactive bowel sounds Palpation: soft Back/Spine no CVA tenderness General Back: other FROM Extremity normal to inspection General Extremety ED: Negative for edema, pulses abnormal or tenderness General Extremity: Negative for edema or pulses abnormal Neuro oriented x3, CN's II-XII intact bilaterally and no sensory deficits noted Sensorium / Orientation: awake and alert Motor Exam: strength 5/5 throughout Psych mental status grossly normal Skin no rashes or lesions noted and no wounds MDM MDM MDM Narrative Medical decision making narrative: Patient with symptoms of a COPD exacerbation, spitting up green-colored sputum subjective temperatures, no chest pain. No edema in her legs no orthopnea. Chest x-ray 1 view shows haziness in the right side, more consistent with CHF according to radiology on my interpretation, may be an atypical pneumonia. After nebulizer treatment she is breathing a little better but still has a bad cough. We ambulated her on her home 2 L, she was very dyspneic with very short distance she went down to 85%, feeling weak. She is amenable to staying in hospital, started on Levaquin and Solu-Medrol, she has penicillin allergy. Discussed with hospitalist for this. Lab Data Attestation: I reviewed the patient's lab results. Labs: Laboratory Results - last 24 hr 06/25/23 13:10 WBC 12.8 H RBC 4.20 Hgb 12.0 Hct 37.3 MCV 88.8 MCH 28.6 MCHC 32.2 RDW Std Deviation 42.4 RDW Coeff of Radha 12.9 Plt Count 290 MPV 11.8 Immature Gran % (Auto) 0.400 Neut % (Auto) 76.7 H Lymph % (Auto) 9.6 L [place] % (Auto) 12.7 H Eos % (Auto) 0.2 Baso % (Auto) 0.4 Absolute Neuts (auto) 9.8 H Absolute Lymphs (auto) 1.23 Nucleated RBC % 0 Diff Path Review May foll Sodium 130 L Potassium 3.8 Chloride 95 L Carbon Dioxide 26.0 Anion Gap 9 BUN 7 Creatinine 0.88 Estim Creat Clear Calc 49.25 Est GFR (MDRD) Af Amer 78 Est GFR (MDRD) Non-Af 65 BUN/Creatinine Ratio 7.9 L Glucose 105 Calcium 9.3 Radiography Diagnostic Testing: Clinical Impression(s) from Imaging Studies Chest X-Ray 06/25/23 14:10 IMPRESSION: Hyperinflation. Findings suggestive of a mild degree of CHF. Electronically Signed: Chuck Evangelista MD at 14:26 EST , Rhythm Strip Rhythm Strip: Sinus Rhythm Rate: 90 Ectopy: None EKG Initial EKG: Attestation: I personally reviewed and interpreted this EKG as follows: Interpretation: Sinus Rhythm, No Acute Injury Pattern, RBBB (incomplete) and LAFB Prior EKG tracings: available for review Prior: Unchanged Management Discussion w/another healthcare provider: Hospitalist Discharge Plan Dx/Rx/DC Orders Clinical Impression: Acute respiratory insufficiency, Atypical pneumonia, Hypoxemia, Acute exacerbation of chronic obstructive pulmonary disease Disposition Disposition: Acute Care Hospital [facility]
[2023-06-25] MEDS: Ipratropium/Albuterol Sulfate 3 ML AMPUL.NEB INHALATION ×2 (13:46→19:50)
[2023-06-25 13:54] LABS: Absolute Lymphocyte Count 1.23 X10^3/uL (0.83-4.51); Absolute Neutrophil Count 9.8 X10^3/uL (2.0-7.7); Basophil# 0.05 X10^3/uL; Basophil% 0.4 % (0-1); Eosinophil# 0.02 X10^3/uL; Eosinophils% 0.2 % (0-5); Hematocrit 37.3 % (37-47); Lymphocyte # 1.23 X10^3/ul (0.83-4.51); Lymphocyte % 9.6 % (19-41); Mean Corp Hgb Conc 32.2 g/dL (32-36); Mean Corpuscular Hgb 28.6 pg (27.0-32.0); Mean Corpuscular Volume 88.8 fL (81-99); Mean Platelet Vol. 11.8 fl (6.2-12.0); Monocyte# 1.62 X10^3/uL; Monocyte% 12.7 % (0-10); NRBC Flagged by Analyzer 0 % (0-5); Neutrophil # 9.83 X10^3/uL (2.7-7.7); Neutrophil % 76.7 % (47-70); POSITIVE DIFFERENTIAL YES; Platelet Count 290 K/mm3 (150-450); RBC Distribution Width CV 12.9 % (11.6-14.6); RBC Distribution Width SD 42.4 fl (35.1-43.9); White Blood Count 12.8 K/mm3 (4.4-11.0)
[2023-06-25 13:55] LABS: Differential Indicated SCAN CRITERIA MET
[2023-06-25 14:03] LABS: Anion Gap 9 (5-15); BUN 7 mg/dL (7-18); BUN/Creat Ratio 7.9 RATIO (10-20); Calcium,Total 9.3 mg/dL (8.5-10.1); Chloride 95 mmol/L (98-107); Creatinine, Serum 0.88 mg/dL (0.55-1.02); EST Glomerular Filtration Rate 65 mL/min (>60); Est Glom Filt Rate - Afr Amer 78 mL/min (>60); Estimated Creatinine Clearance 49.25 ml/min; Glucose 105 mg/dL (74-106); Potassium 3.8 mmol/L (3.5-5.1); Sodium Level 130 mmol/L (136-145)
--- NOTE | 2023-06-25 14:10 | RAD_ITS ---
STUDY: X-RAY CHEST REASON FOR EXAM: Female, 83 years old. Cough/sob/copd TECHNIQUE: PA and lateral views of the chest. COMPARISON: Comparison is made with prior study dated August 01, 2022. FINDINGS: EKG electrodes are seen. Hyperinflation. Mild increased interstitial markings suggests a mild degree of CHF. There is no demonstrated pleural abnormality. There is borderline cardiomegaly. Normal mediastinum and wilbert. Normal visualized pulmonary arteries. Normal visualized aortic arch and descending thoracic aorta. Normal visualized thoracic spine. Normal visualized ribs, clavicles, and shoulders. There is no demonstrated abnormality of the visualized soft tissue structures of the upper abdomen. RAD/Chest PA and Lateral IMPRESSION: Hyperinflation. Findings suggestive of a mild degree of CHF. Electronically Signed: Chuck Evangelista MD at 14:26 EST ,
[2023-06-25] MEDS: Albuterol 2.5 MG/3 ML VIAL.NEB. INHALATION ×2 (15:02)
[2023-06-25] MEDS: MethylPREDNISolone 125 MG/2 ML Vial IV (15:15)
[2023-06-25] MEDS: levoFLOXacin 750 MG Tablet PO (15:15)
--- NOTE | 2023-06-25 16:10 | NURSING ---
MED SURG OBS AINSLEYS COPD EXAC, HYPOXEMIA, RESP INSUFFICIENCY
--- NOTE | 2023-06-25 16:29 | PCM.HP.STD ---
HPI - General General Date of Admission: 06/25/23 HPI Narrative QUYNH LIN, is a 83 F who presents to the hospital with increasing weakness and shortness of breath over the last several days. She is also noticed increased sputum production. She does have a history of COPD and is on her baseline of 2 L nasal cannula mostly at night but she does wear occasionally during the day. She tried to see her PCP today who directed her to an urgent care which directed her here to the ER. On admission she was found to be maintaining her oxygen saturations on her 2 L nasal cannula but was tachycardic with a leukocytosis. Also when they tried to ambulate her she dropped down to 85% on her baseline 2 L nasal cannula. She was given a dose of steroids as well as Levaquin and breathing treatments in the ER. Chest x-ray demonstrated right-sided haziness but she does not have a history of CHF and she is wheezing on exam. [facility] Medical History (Updated 06/25/23 @ 17:34 by Ciarra Nieto) COPD (chronic obstructive pulmonary disease) Depression Former smoker On home oxygen therapy Home Medications citalopram 10 mg tablet 10 mg PO DAILY depression 11/03/14 [History Last Taken 06/24/23] yumncqae-ehe-xuriw acid 0.4 mg-lycopene 300 mcg-lutein 250 mcg tablet 1 ea PO DAILY 11/03/14 [History Last Taken 06/24/23] Oxygen, Home [Home Oxygen] 2 l inhalation DAILY 11/04/14 [History Last Taken Unknown] Culturelle Capsule 1 cap PO QODAY probiotic 06/02/15 [History Last Taken 06/24/23] albuterol sulfate 2.5 mg/3 mL (0.083 %) solution for nebulization 2.5 mg (3 mL) inhalation Q2H PRN PRN DYSPNEA ##1 06/03/15 [Rx Last Taken 06/24/23] albuterol sulfate 90 mcg/actuation aerosol inhaler 2 puff inhalation Q4H PRN PRN Shortness Of Breath ##1 06/03/15 [Rx Last Taken 06/24/23] guaifenesin 600 mg tablet, extended release 12 hr 600 mg PO BID #30 tabs 06/03/15 [Rx Last Taken 06/24/23] pantoprazole 40 mg tablet,delayed release 40 mg PO DAILY #30 tabs 06/03/15 [Rx Last Taken 06/24/23] tiotropium bromide 18 mcg capsule with inhalation device 1 puff inhalation DAILY ##1 06/03/15 [Rx Last Taken 06/24/23] fluticasone furoate 200 mcg-vilanterol 25 mcg/dose inhalation powder 1 ea IH DAILY COPD 10/21/17 [History Last Taken 06/24/23] dupilumab 300 mg/2 mL subcutaneous syringe (Dupixent) 300 mg subcut QWEEK 06/25/23 [History Last Taken Unknown] Allergy/AdvReac Type Severity Reaction Status Date / Time latex Allergy Other Verified 06/25/23 13:08 Penicillins Allergy PT UNSURE Verified 06/25/23 13:08 OF REACTION amoxicillin trihydrate AdvReac Diarrhea Verified 06/25/23 13:08 [From Augmentin] potassium clavulanate AdvReac Diarrhea Verified 06/25/23 13:08 [From Augmentin] Family History (Updated 06/25/23 @ 16:[address] Emigdio Silverman MD) Other Heart disease Surgical History s/p lumbar surgery Social History (Updated 08/03/18 @ 15:[address] Cira Fontaine MD) Smoking Status: Former smoker ROS Constitutional Constitutional: Reports fatigue; Denies chills, fever(s) or malaise Eyes Eyes: Denies blurry vision ENT HEENT: Denies headache(s) or nasal discharge Cardiovascular Cardiovascular: Denies chest pain, dyspnea on exertion or syncope Respiratory/Chest Respiratory/Chest: Reports productive cough, shortness of breath at rest and shortness of breath with exertion Gastrointestinal Gastrointestinal: Denies constipation, diarrhea, nausea or vomiting Genitourinary Genitourinary: Denies dysuria Neurologic Neurologic: Denies focal weakness, numbness or tremor(s) Psychiatric Psychiatric: Denies anxiety or depression Vital Signs Vital Signs Vital Signs: 06/25/23 13:08 06/25/23 13:37 06/25/23 13:37 Temperature 98.8 F Temperature Source Temporal Pulse Rate 97 Respiratory Rate 29 H Respiratory Effort Short of Breath Respiratory Pattern Tachypnea Blood Pressure 122/64 H Blood Pressure Mean 83 Pulse Ox 95 92 Oxygen Delivery Method Nasal Cannula Nasal Cannula Nasal Cannula Oxygen Flow Rate (L/min) 2 2 2 06/25/23 13:53 06/25/23 15:04 06/25/23 15:13 Temperature Temperature Source Pulse Rate 88 92 103 H Respiratory Rate 25 H 24 H 23 H Respiratory Effort Respiratory Pattern Tachypnea Tachypnea Blood Pressure 125/92 H Blood Pressure Mean 103 Pulse Ox 95 Oxygen Delivery Method Nasal Cannula Oxygen Flow Rate (L/min) 2 06/25/23 15:56 06/25/23 15:58 Temperature 98.8 F Temperature Source Temporal Pulse Rate 105 H 105 H Respiratory Rate 31 H 31 H Respiratory Effort Respiratory Pattern Blood Pressure 113/60 113/60 Blood Pressure Mean 77 77 Pulse Ox 94 94 Oxygen Delivery Method Nasal Cannula Oxygen Flow Rate (L/min) 2 Weight Weight: 141 lb 15.643 oz Body Mass Index (BMI) 28.6 Physical Exam Narrative General: Alert, Oriented x3, Cooperative, No apparent distress HEENT: Atraumatic, PERRLA, EOMI, Normocephalic Oral: Moist Mucosa Neck: Supple, No JVD Lungs: Diminished, Normal air movement, No rhonchi, wheeze, No rales Cardiovascular: Tachycardic, Regular Rhythm, Normal S1, Normal S2, No murmurs Abdomen: Soft, Non Tender, Non-Distended, No Hepato-splenomegaly Extremities: No edema, Capillary Refill Less than 3 Seconds Skin: No rashes, No breakdown Musculoskeletal: No Tenderness to Palpation of Joints or Extremities Neurological: Cranial nerves II-XII grossly intact, Motor Exam 5/5 strength throughout, Sensory exam intact to light touch and pain Psych/Mental Status: Normal Affect, Appropriate Results Lab / Micro Data 06/25/23 13:10 06/25/23 13:10 Labs: Laboratory Results - last 24 hr 06/25/23 13:10: WBC 12.8 H, RBC 4.20, Hgb 12.0, Hct 37.3, MCV 88.8, MCH 28.6, MCHC 32.2, RDW Std Deviation 42.4, RDW Coeff of Radha 12.9, Plt Count 290, MPV 11.8, Immature Gran % (Auto) 0.400, Neut % (Auto) 76.7 H, Lymph % (Auto) 9.6 L, [place] % (Auto) 12.7 H, Eos % (Auto) 0.2, Baso % (Auto) 0.4, Absolute Neuts (auto) 9.8 H, Absolute Lymphs (auto) 1.23, Nucleated RBC % 0, Diff Path Review May foll, Sodium 130 L, Potassium 3.8, Chloride 95 L, Carbon Dioxide 26.0, Anion Gap 9, BUN 7, Creatinine 0.88, Estim Creat Clear Calc 49.25, Est GFR (MDRD) Af Amer 78, Est GFR (MDRD) Non-Af 65, BUN/Creatinine Ratio 7.9 L, Glucose 105, Calcium 9.3 Micro: Microbiology 06/25/23 13:05 Nasal Secretion SARS-CoV-2 & FLU Antigen (Rapid) - Final Rhythm Strip Rhythm Strip: Sinus Rhythm Rate: 90 Ectopy: None Imagaing Radiology Impression Chest X-Ray 06/25/23 14:10 IMPRESSION: Hyperinflation. Findings suggestive of a mild degree of CHF. Electronically Signed: Chuck Evangelista MD at 14:26 EST , Assessment & Plan Assessment/Plan (1) Acute exacerbation of chronic obstructive pulmonary disease: (2) Hypoxemia: (3) Atypical pneumonia: PLAN: Plan 1. Acute COPD exacerbation secondary to atypical pneumonia ? She does have a patchy haziness in her right lung that not evident on the left lung based on my view of the chest x-ray ? We will continue with Levaquin every 48 hours secondary to creatinine clearance ? Continue with steroids and breathing treatments ? She is on her baseline 2 L of oxygen at rest however she did drop to 85% on her 2 L so we will plan for an ambulatory pulse ox in the morning ? We will plan for a sputum culture as well as a strep and Legionella antigen 2. GERD ? Stable ? Continue with her home PPI DVT: Lovenox 75 minutes was spent on direct patient care, including documentation as well as chart review and collaboration with colleagues Charges/Coding Visit Charges Inpatient E&M: 00904 Init Hosp L3
[2023-06-25] MEDS: 0.9% Saline Lock 10 ML Syringe IV (21:48)
[2023-06-26] VITALS (14 sets, daily range): BP systolic 112–131; BP diastolic 63–74; PULSE 69–142; RESP 16–28; TEMP 35.9–36.6; O2SAT 90–97
[2023-06-26] MEDS: Ipratropium/Albuterol Sulfate 3 ML AMPUL.NEB INHALATION ×6 (03:49→23:50)
[2023-06-26] MEDS: 0.9% Saline Lock 10 ML Syringe IV ×4 (05:18→22:30)
[2023-06-26 07:46] LABS: Absolute Lymphocyte Count 0.86 X10^3/uL (0.83-4.51); Absolute Neutrophil Count 10.6 X10^3/uL (2.0-7.7); Basophil# 0.01 X10^3/uL; Basophil% 0.1 % (0-1); Hematocrit 32.6 % (37-47); Hemoglobin 10.5 g/dL (12.0-15.0); Lymphocyte # 0.86 X10^3/ul (0.83-4.51); Lymphocyte % 7.3 % (19-41); Mean Corp Hgb Conc 32.2 g/dL (32-36); Mean Corpuscular Hgb 28.5 pg (27.0-32.0); Mean Corpuscular Volume 88.6 fL (81-99); Mean Platelet Vol. 11.2 fl (6.2-12.0); Monocyte# 0.22 X10^3/uL; Monocyte% 1.9 % (0-10); NRBC Flagged by Analyzer 0 % (0-5); Neutrophil # 10.59 X10^3/uL (2.7-7.7); Neutrophil % 89.9 % (47-70); Platelet Count 284 K/mm3 (150-450); RBC Distribution Width SD 42.2 fl (35.1-43.9); Red Blood Count 3.68 M/mm3 (4.2-5.4); White Blood Count 11.8 K/mm3 (4.4-11.0)
--- NOTE | 2023-06-26 08:05 | PCM.PN.HOSP ---
Reason for Visit Reason for Visit: Diagnoses Pneumonia, unspecified organism (06/25/23) Chronic obstructive pulmonary disease with (acute) exacerbation (06/25/23) Hypoxemia (06/25/23) Objective Data Objective Data Vital Signs: Vital Signs Temp Pulse Resp BP Pulse Ox O2 Del Method O2 Flow Rate 97.6 F L 97 17 112/63 94 Nasal Cannula 2 06/26/23 07:35 06/26/23 07:40 06/26/23 07:40 06/26/23 07:35 06/26/23 07:35 06/26/23 07:40 06/26/23 07:40 Oxygen Flow Rate (L/min) 2 Oxygen Delivery Method Nasal Cannula Weight: 58.2 kg Body Mass Index (BMI) 25.9 Intake & Output: Intake and Output for Last 24 Hours 06/24/23 06/25/23 06/26/23 23:59 23:59 23:59 Intake Total 200 / 200 Balance 200 / 200 Lab / Micro Data 06/26/23 07:35 06/26/23 07:35 Labs: Laboratory Results - last 24 hr 06/25/23 13:10: WBC 12.8 H, RBC 4.20, Hgb 12.0, Hct 37.3, MCV 88.8, MCH 28.6, MCHC 32.2, RDW Std Deviation 42.4, RDW Coeff of Radha 12.9, Plt Count 290, MPV 11.8, Immature Gran % (Auto) 0.400, Neut % (Auto) 76.7 H, Lymph % (Auto) 9.6 L, Lee % (Auto) 12.7 H, Eos % (Auto) 0.2, Baso % (Auto) 0.4, Absolute Neuts (auto) 9.8 H, Absolute Lymphs (auto) 1.23, Nucleated RBC % 0, Diff Path Review May foll, Sodium 130 L, Potassium 3.8, Chloride 95 L, Carbon Dioxide 26.0, Anion Gap 9, BUN 7, Creatinine 0.88, Estim Creat Clear Calc 49.25, Est GFR (MDRD) Af Amer 78, Est GFR (MDRD) Non-Af 65, BUN/Creatinine Ratio 7.9 L, Glucose 105, Calcium 9.3 06/26/23 07:35: WBC 11.8 H, RBC 3.68 L, Hgb 10.5 L, Hct 32.6 L, MCV 88.6, MCH 28.5, MCHC 32.2, RDW Std Deviation 42.2, RDW Coeff of Radha 13.0, Plt Count 284, MPV 11.2, Immature Gran % (Auto) 0.800, Neut % (Auto) 89.9 H, Lymph % (Auto) 7.3 L, Lee % (Auto) 1.9, Eos % (Auto) 0.0, Baso % (Auto) 0.1, Absolute Neuts (auto) 10.6 H, Absolute Lymphs (auto) 0.86, Nucleated RBC % 0 Micro: Microbiology 06/26/23 03:30 Urine, Clean Catch Legionella Antigen - Final 06/26/23 03:30 Urine, Clean Catch Streptococcus pneumoniae Antigen (M - Final 06/25/23 13:05 Nasal Secretion SARS-CoV-2 & FLU Antigen (Rapid) - Final Radiography Diagnostic Testing: Radiology Impression Chest X-Ray 06/25/23 14:10 IMPRESSION: Hyperinflation. Findings suggestive of a mild degree of CHF. Electronically Signed: Chuck Evangelista MD at 14:26 EST Reading Location ID and State: [address] [place] [address] , Service support , Rhythm Strip Rhythm Strip: Sinus Rhythm Rate: 90 Ectopy: None Physical Exam Narrative General: Alert, Oriented x3, Cooperative, No apparent distress HEENT: Atraumatic, PERRLA, EOMI, Normocephalic Oral: Moist Mucosa Neck: Supple, No JVD Lungs: Diminished, Normal air movement, No rhonchi, wheeze, No rales Cardiovascular: Tachycardic, Regular Rhythm, Normal S1, Normal S2, No murmurs Abdomen: Soft, Non Tender, Non-Distended, No Hepato-splenomegaly Extremities: No edema, Capillary Refill Less than 3 Seconds Skin: No rashes, No breakdown Musculoskeletal: No Tenderness to Palpation of Joints or Extremities Neurological: Cranial nerves II-XII grossly intact, Motor Exam 5/5 strength throughout, Sensory exam intact to light touch and pain Psych/Mental Status: Normal Affect, Appropriate Assessment & Plan Assessment/Plan (1) Acute exacerbation of chronic obstructive pulmonary disease: (2) Atypical pneumonia: PLAN: Plan Patient is an 83-year-old lady admitted with progressive shortness of breath. Chest x-ray did demonstrate hyperinflation as well as findings suggestive of mild degree of congestive heart failure. Admitted to monitored bed for further management 1. COPD with acute exacerbation ? Patient admitted to monitored bed managed with bronchodilator treatment steroid as well as antibiotics in addition to supplemental oxygen titrated to keep saturation greater than 91. 2. Vascular congestion suggestive of CHF ? Ordered BMP as well as a 2D echo 3. Osteoporosis ? Patient is on denosumab 4. Chronic hypoxic respiratory failure secondary to COPD ? Patient is on 2 L of oxygen at home continuous 5. GERD ? On PPI 6. DVT prophylaxis - On enoxaparin Time spent in the patient's overall evaluation,decision-making process, review of diagnostic data, adjustment of management, discussion with other providers, nursing nursing and ancillary staff involved in patient's care documentation, 50 Minutes Charges/Coding Visit Charges Inpatient E&M: [id number] [place] [id number]
[2023-06-26 08:30] LABS: Anion Gap 8 (5-15); BUN 12 mg/dL (7-18); BUN/Creat Ratio 12.5 RATIO (10-20); Calcium,Total 9.2 mg/dL (8.5-10.1); Chloride 97 mmol/L (98-107); Creatinine, Serum 0.96 mg/dL (0.55-1.02); EST Glomerular Filtration Rate 59 mL/min (>60); Est Glom Filt Rate - Afr Amer 71 mL/min (>60); Glucose 195 mg/dL (74-106); Potassium 3.7 mmol/L (3.5-5.1); Sodium Level 130 mmol/L (136-145)
[2023-06-26] MEDS: Citalopram 10 MG Tablet PO (09:08)
[2023-06-26] MEDS: Enoxaparin 40 MG/0.4 ML Syringe SC (09:08)
[2023-06-26] MEDS: Pantoprazole Sodium 40 MG Tablet PO (09:08)
--- NOTE | 2023-06-26 10:45 | ECHOD_ITS ---
Reason For Study: Dyspnea/SOB Procedure This was a 2D Doppler, Color Flow transthoracic echocardiogram. Exam performed portable in patient room. Left Ventricle Normal size and thickness. Left ventricular systolic function is hyperdynamic. The left ventricular ejection fraction is 70 %. Diastolic function is indeterminate. Right Ventricle Normal right ventricle. Atria The left atrium is mildly enlarged. Normal right atrium. Mitral Valve Moderate mitral annular calcification. Mild (1+) mitral valve insufficiency. Tricuspid Valve Mild tricuspid valve insufficiency. Right ventricular systolic pressure estimated to be 49 mmHg. Aortic Valve Aortic sclerosis, no stenosis. Pulmonic Valve The pulmonic valve is not well visualized. Great Vessels Normal sized aortic root. Pericardium/Pleural Epicardial fat. MMode/2D Measurements & Calculations LVIDd: 4.7 cm IVSd: 0.98 cm Ao root diam: 2.5 cm LVIDs: 2.8 cm LVPWd: 0.89 cm RVDd: 2.9 cm FS: 40.0 % LAV(MOD-bp): 31.3 ml LVAd ap4: 13.7 cm2 SV(MOD-sp4): 20.8 ml LAV(MOD-bp) Indexed: 19.7 ml/m2 LVLd ap4: 4.9 cm LAV(MOD-sp2): 27.7 ml EDV(MOD-sp4): 31.2 ml LAV(MOD-sp4): 32.5 ml EDV(sp4-el): 32.4 ml LVAs ap4: 6.7 cm2 LVLs ap4: 3.9 cm ESV(MOD-sp4): 10.4 ml ESV(sp4-el): 9.9 ml EF(MOD-sp4): 66.8 % EF(sp4-el): 69.5 % SV(sp4-el): 22.5 ml LA A4 area: 14.3 cm2 LA dimension(2D): 4.3 cm RA A4 area: 9.6 cm2 TAPSE: 2.2 cm Time Measurements MV dec time: 0.22 sec Doppler Measurements & Calculations MV E max ole: 127.9 cm/sec Lat Peak E' Ole: 7.6 cm/sec Med Peak E' Ole: 7.3 cm/sec MV A max ole: 132.2 cm/sec E/E' lat: 16.8 E/E' med: 17.5 MV E/A: 0.97 MV V2 max: 163.0 cm/sec Ao V2 max: 144.2 cm/sec MV max P.6 mmHg MV dec slope: 594.3 cm/sec2 Ao max P.3 mmHg MV V2 mean: 123.8 cm/sec Ao V2 mean: 113.4 cm/sec MV mean P.4 mmHg Ao mean P.4 mmHg MV V2 VTI: 37.7 cm Ao V2 VTI: 27.6 cm AV (velocity ratio): 0.76 LV V1 max: 119.1 cm/sec PA V2 max: 104.2 cm/sec TR max ole: 329.2 cm/sec LV V1 max P.7 mmHg TR max P.4 mmHg LV V1 mean P.9 mmHg LV V1 mean: 81.4 cm/sec LV V1 VTI: 21.1 cm ECHO/Echo Complete Interpretation Summary Left ventricular systolic function is hyperdynamic. The left ventricular ejection fraction is 70 %. Diastolic function is indeterminate. The left atrium is mildly enlarged. Moderate mitral annular calcification. Mild (1+) mitral valve insufficiency Mild tricuspid valve insufficiency.. Right ventricular systolic pressure estimated to be 49 mmHg. Ordering Physician: Chadd Lester Referring Physician: Darleen Mcarthur Performed By: Judith Campo, MILLA, RVT
[2023-06-26 11:50] LABS: BNP,B-Type NATRIURETIC PEPTIDE 302.6 pg/mL (0-100)
[2023-06-26] MEDS: Furosemide 40 MG/4 ML Vial IV ×2 (11:55→16:59)
[2023-06-26] MEDS: BENZOCAINE/MENTHOL 1 LOZENGE 2 LOZENGE MUCOUS MEM ×2 (15:21→22:45)
[2023-06-27] VITALS (15 sets, daily range): BP systolic 102–140; BP diastolic 56–64; PULSE 76–107; RESP 18–24; TEMP 36.1–36.7; O2SAT 82–100
[2023-06-27] MEDS: dilTIAZem CD 240 MG Capsule PO (00:04)
[2023-06-27] MEDS: Benzonatate 100 MG Capsule PO ×2 (01:04→10:04)
[2023-06-27] MEDS: Ipratropium/Albuterol Sulfate 3 ML AMPUL.NEB INHALATION ×5 (03:25→19:42)
[2023-06-27] MEDS: levoFLOXacin 750 MG Tablet PO (05:30)
[2023-06-27] MEDS: 0.9% Saline Lock 10 ML Syringe IV (05:31)
[2023-06-27 05:56] LABS: Absolute Lymphocyte Count 1.11 X10^3/uL (0.83-4.51); Absolute Neutrophil Count 18.7 X10^3/uL (2.0-7.7); Basophil# 0.03 X10^3/uL; Basophil% 0.1 % (0-1); Hematocrit 33.3 % (37-47); Hemoglobin 10.7 g/dL (12.0-15.0); Lymphocyte # 1.11 X10^3/ul (0.83-4.51); Lymphocyte % 5.3 % (19-41); Mean Corp Hgb Conc 32.1 g/dL (32-36); Mean Corpuscular Hgb 28.1 pg (27.0-32.0); Mean Corpuscular Volume 87.4 fL (81-99); Mean Platelet Vol. 11.8 fl (6.2-12.0); Monocyte# 0.77 X10^3/uL; Monocyte% 3.7 % (0-10); NRBC Flagged by Analyzer 0 % (0-5); Neutrophil # 18.68 X10^3/uL (2.7-7.7); Neutrophil % 89.8 % (47-70); Platelet Count 314 K/mm3 (150-450); RBC Distribution Width CV 13.2 % (11.6-14.6); RBC Distribution Width SD 42.6 fl (35.1-43.9); Red Blood Count 3.81 M/mm3 (4.2-5.4); White Blood Count 20.8 K/mm3 (4.4-11.0)
[2023-06-27 06:37] LABS: Anion Gap 8 (5-15); BUN 22 mg/dL (7-18); BUN/Creat Ratio 17.5 RATIO (10-20); Calcium,Total 8.3 mg/dL (8.5-10.1); Chloride 94 mmol/L (98-107); Creatinine, Serum 1.26 mg/dL (0.55-1.02); EST Glomerular Filtration Rate 43 mL/min (>60); Est Glom Filt Rate - Afr Amer 52 mL/min (>60); Estimated Creatinine Clearance 31.08 ml/min; Glucose 205 mg/dL (74-106); Phosphorus 3.4 mg/dL (2.5-4.9); Potassium 3.6 mmol/L (3.5-5.1); Sodium Level 131 mmol/L (136-145)
[2023-06-27] MEDS: Enoxaparin 40 MG/0.4 ML Syringe SC (10:00)
[2023-06-27] MEDS: Furosemide 40 MG/4 ML Vial IV (10:00)
[2023-06-27] MEDS: Citalopram 10 MG Tablet PO (10:00)
[2023-06-27] MEDS: Pantoprazole Sodium 40 MG Tablet PO (10:00)
[2023-06-27 11:01] LABS: Pathologist Review Reviewed
--- NOTE | 2023-06-27 11:20 | CASEMGMT ---
RN WALTER Face to Face with patient for initial transition planning/care coordination assessment. RN CM introduced self and role at [facility]. Patient sitting in chair, alert and oriented. Patient willing to participate in assessment and is able to answer all questions appropriately. Care providers, pharmacy, and demographics verified. Patient wishes to discharge home, denies need for home health at this time. Patient states he has no further needs or concerns at this time. CM to follow for discharge planning needs that may arise. PCP: [facility] Specialists: Bladimir insurance loss control surveyor Preferred Pharmacy: [facility] Insurance: Mack ROQUE Prescription Benefit: yes Living Will/HPOA: yes, son Erik Dial HPOA LNOK: sons, boyfriend Living Arrangements: Patient lives with boyfriend in a first floor apartment with no steps to enter. Patient is independent at home. Transportation: self, boyfriend DME/HHC: Patient has shower chair, grab bars, rollator, and home oxygen through [employer] at and [facility] with portability. No previous HHC or SNF. Disposition Plan: Patient to discharge home with family support and follow-up plans in place. Will monitor for increase in home oxygen. Merly GARRETT, RN, CM
--- NOTE | 2023-06-27 11:51 | PCM.PN.HOSP ---
Reason for Visit Reason for Visit: Diagnoses Pneumonia, unspecified organism (06/26/23) Chronic obstructive pulmonary disease with (acute) exacerbation (06/26/23) Hypoxemia (06/26/23) Subjective Subjective Since seen breathing still remains somewhat labored at rest. WBC count markedly elevated adjusted patient prednisone dose. Echo obtained the day prior demonstrated EF of 75% Objective Data Objective Data Vital Signs: Vital Signs Temp Pulse Resp BP Pulse Ox O2 Del Method O2 Flow Rate 98.1 F 91 20 H 107/60 87 Nasal Cannula 0 06/27/23 09:52 06/27/23 10:56 06/27/23 10:56 06/27/23 09:52 06/27/23 10:24 06/27/23 09:53 06/27/23 10:24 Oxygen Flow Rate (L/min) [ 6 AMBULATING with Oxygen #3] Oxygen Flow Rate (L/min) [ 4 AMBULATING with Oxygen #2] Oxygen Flow Rate (L/min) [ 2 AMBULATING with Oxygen #1] Oxygen Flow Rate (L/min) [At 2 REST with Oxygen] Oxygen Flow Rate (L/min) [At 0 REST on Room Air] Oxygen Flow Rate (L/min) 2 Oxygen Delivery Method Nasal Cannula Weight: 58.2 kg Body Mass Index (BMI) 25.9 Intake & Output: Intake and Output for Last 24 Hours 06/25/23 06/26/23 06/27/23 23:59 23:59 23:59 Intake Total 200 / 200 120 / 120 50 / 50 Balance 200 / 200 120 / 120 50 / 50 Lab / Micro Data 06/27/23 05:18 06/27/23 05:18 Labs: Laboratory Results - last 24 hr 06/25/23 13:10: Diff Path Review Reviewed 06/27/23 05:18: WBC 20.8 H, RBC 3.81 L, Hgb 10.7 L, Hct 33.3 L, MCV 87.4, MCH 28.1, MCHC 32.1, RDW Std Deviation 42.6, RDW Coeff of Radha 13.2, Plt Count 314, MPV 11.8, Immature Gran % (Auto) 1.100 H, Neut % (Auto) 89.8 H, Lymph % (Auto) 5.3 L, [place] % (Auto) 3.7, Eos % (Auto) 0.0, Baso % (Auto) 0.1, Absolute Neuts (auto) 18.7 H, Absolute Lymphs (auto) 1.11, Nucleated RBC % 0, Sodium 131 L, Potassium 3.6, Chloride 94 L, Carbon Dioxide 29.0, Anion Gap 8, BUN 22 H, Creatinine 1.26 H, Estim Creat Clear Calc 31.08, Est GFR (MDRD) Af Amer 52 L, Est GFR (MDRD) Non-Af 43 L, BUN/Creatinine Ratio 17.5, Glucose 205 H, Calcium 8.3 L, Phosphorus 3.4, Magnesium 2.0 Micro: Microbiology 06/26/23 13:00 Sputum, Expectorated/Coughed Gram Stain - Final 06/26/23 03:30 Urine, Clean Catch Legionella Antigen - Final 06/26/23 03:30 Urine, Clean Catch Streptococcus pneumoniae Antigen (M - Final 06/25/23 13:05 Nasal Secretion SARS-CoV-2 & FLU Antigen (Rapid) - Final Radiography Diagnostic Testing: Radiology Impression Echocardiogram 06/26/23 10:45 Interpretation Summary Left ventricular systolic function is hyperdynamic. The left ventricular ejection fraction is 70 %. Diastolic function is indeterminate. The left atrium is mildly enlarged. Moderate mitral annular calcification. Mild (1+) mitral valve insufficiency Mild tricuspid valve insufficiency.. Right ventricular systolic pressure estimated to be 49 mmHg. Ordering Physician: Chadd Lester Referring Physician: Darleen Mcarthur Performed By: Judith Campo, MILLA, RVT Rhythm Strip Rhythm Strip: Sinus Rhythm Rate: 90 Ectopy: None Physical Exam Narrative GENERAL: cooperative HEENT: Atraumatic; normocephalic EYES; Anicteric, Normal Conjunctiva NECK; supple, normal thyroid, RESPIRATORY: Diminished to auscultation CARDIOVASCULAR: Regular S1 S2, GI: soft, normoactive bowel sounds, : No Renal angle tenderness; EXTREMITIES: No edema, no clubbing, MUSCULOSKELETAL: no muscle wasting NEURO: Awake; no lateralizing signs. SKIN: No Rash PSYCH; Flat affect Assessment & Plan Assessment/Plan (1) Acute exacerbation of chronic obstructive pulmonary disease: (2) Atypical pneumonia: PLAN: Plan Patient is an 83-year-old lady admitted with progressive shortness of breath. Chest x-ray did demonstrate hyperinflation as well as findings suggestive of mild degree of congestive heart failure. Admitted to monitored bed for further management 1. COPD with acute exacerbation ? Patient admitted to monitored bed managed with bronchodilator treatment steroid as well as antibiotics in addition to supplemental oxygen titrated to keep saturation greater than 91. ? 06/27/2023 patient seen still remains dyspneic at rest requiring 6 L with ambulation patient normally wears 2 L as needed for home activity 2. Acute congestive heart failure with preserved ejection fraction ? Checks x-ray obtained demonstrated vascular congestion suggestive of CHF ? Ordered BMP as well as a 2D echo ? 06/27/2023 echo obtained results are as below Left ventricular systolic function is hyperdynamic. The left ventricular ejection fraction is 70 %. Diastolic function is indeterminate. The left atrium is mildly enlarged. Moderate mitral annular calcification. Mild (1+) mitral valve insufficiency Mild tricuspid valve insufficiency.. Right ventricular systolic pressure estimated to be 49 mmHg. 3. Osteoporosis ? Patient is on denosumab 4. Chronic hypoxic respiratory failure secondary to COPD ? Patient is on 2 L of oxygen at home continuous 5. GERD ? On PPI 6. DVT prophylaxis - On enoxaparin Time spent in the patient's overall evaluation,decision-making process, review of diagnostic data, adjustment of management, discussion with other providers, nursing nursing and ancillary staff involved in patient's care documentation, 50 Minutes Charges/Coding Visit Charges Inpatient E&M: 02622 [facility] L3
[2023-06-28] VITALS (8 sets, daily range): BP systolic 107–140; BP diastolic 55–66; PULSE 76–89; RESP 18–20; TEMP 36.3–36.7; O2SAT 84–97
[2023-06-28 06:33] LABS: Absolute Lymphocyte Count 1.45 X10^3/uL (0.83-4.51); Basophil# 0.04 X10^3/uL; Basophil% 0.2 % (0-1); Hematocrit 34.2 % (37-47); Lymphocyte # 1.45 X10^3/ul (0.83-4.51); Lymphocyte % 6.9 % (19-41); Mean Corp Hgb Conc 32.2 g/dL (32-36); Mean Corpuscular Hgb 28.1 pg (27.0-32.0); Mean Corpuscular Volume 87.2 fL (81-99); Mean Platelet Vol. 10.9 fl (6.2-12.0); Monocyte# 1.05 X10^3/uL; NRBC Flagged by Analyzer 0 % (0-5); Neutrophil # 18.03 X10^3/uL (2.7-7.7); Neutrophil % 86.1 % (47-70); Platelet Count 377 K/mm3 (150-450); RBC Distribution Width CV 13.4 % (11.6-14.6); RBC Distribution Width SD 42.6 fl (35.1-43.9); Red Blood Count 3.92 M/mm3 (4.2-5.4)
[2023-06-28] MEDS: Ipratropium/Albuterol Sulfate 3 ML AMPUL.NEB INHALATION ×2 (06:54→11:18)
[2023-06-28 07:01] LABS: Anion Gap 10 (5-15); BUN 27 mg/dL (7-18); Calcium,Total 8.9 mg/dL (8.5-10.1); Chloride 93 mmol/L (98-107); EST Glomerular Filtration Rate 35 mL/min (>60); Est Glom Filt Rate - Afr Amer 43 mL/min (>60); Estimated Creatinine Clearance 26.11 ml/min; Glucose 157 mg/dL (74-106); Potassium 3.5 mmol/L (3.5-5.1); Sodium Level 131 mmol/L (136-145)
--- NOTE | 2023-06-28 08:59 | PCM.PN.HOSP ---
Reason for Visit Reason for Visit: Diagnoses Pneumonia, unspecified organism (06/26/23) Chronic obstructive pulmonary disease with (acute) exacerbation (06/26/23) Hypoxemia (06/26/23) Subjective Subjective Patient seen appears to be back to her baseline patient will be assessed for possible discharge Objective Data Objective Data Vital Signs: Vital Signs Temp Pulse Resp BP Pulse Ox O2 Del Method O2 Flow Rate 98.0 F 82 18 121/55 H 97 Nasal Cannula 2 06/28/23 08:10 06/28/23 08:10 06/28/23 08:10 06/28/23 08:10 06/28/23 08:10 06/28/23 08:22 06/28/23 08:22 Oxygen Flow Rate (L/min) [ 6 AMBULATING with Oxygen #3] Oxygen Flow Rate (L/min) [ 4 AMBULATING with Oxygen #2] Oxygen Flow Rate (L/min) [ 2 AMBULATING with Oxygen #1] Oxygen Flow Rate (L/min) [At 2 REST with Oxygen] Oxygen Flow Rate (L/min) [At 0 REST on Room Air] Oxygen Flow Rate (L/min) 2 Oxygen Delivery Method Nasal Cannula Weight: 58.2 kg Body Mass Index (BMI) 25.9 Intake & Output: Intake and Output for Last 24 Hours 06/26/23 06/27/23 06/28/23 23:59 23:59 23:59 Intake Total 120 / 120 890 / 890 Balance 120 / 120 890 / 890 Lab / Micro Data 06/28/23 05:35 06/28/23 05:35 Labs: Laboratory Results - last 24 hr 06/25/23 13:10: Diff Path Review Reviewed 06/28/23 05:35: WBC 21.0 H, RBC 3.92 L, Hgb 11.0 L, Hct 34.2 L, MCV 87.2, MCH 28.1, MCHC 32.2, RDW Std Deviation 42.6, RDW Coeff of Radha 13.4, Plt Count 377, MPV 10.9, Immature Gran % (Auto) 1.800 H, Neut % (Auto) 86.1 H, Lymph % (Auto) 6.9 L, [place] % (Auto) 5.0, Eos % (Auto) 0.0, Baso % (Auto) 0.2, Absolute Neuts (auto) 18.0 H, Absolute Lymphs (auto) 1.45, Nucleated RBC % 0, Sodium 131 L, Potassium 3.5, Chloride 93 L, Carbon Dioxide 28.0, Anion Gap 10, BUN 27 H, Creatinine 1.50 H, Estim Creat Clear Calc 26.11, Est GFR (MDRD) Af Amer 43 L, Est GFR (MDRD) Non-Af 35 L, BUN/Creatinine Ratio 18.0, Glucose 157 H, Calcium 8.9 Micro: Microbiology 06/26/23 13:00 Sputum, Expectorated/Coughed Gram Stain - Final 06/26/23 03:30 Urine, Clean Catch Legionella Antigen - Final 06/26/23 03:30 Urine, Clean Catch Streptococcus pneumoniae Antigen (M - Final 06/25/23 13:05 Nasal Secretion SARS-CoV-2 & FLU Antigen (Rapid) - Final Rhythm Strip Rhythm Strip: Sinus Rhythm Rate: 90 Ectopy: None Physical Exam Narrative GENERAL: cooperative HEENT: Atraumatic; normocephalic EYES; Anicteric, Normal Conjunctiva NECK; supple, normal thyroid, RESPIRATORY: Diminished to auscultation CARDIOVASCULAR: Regular S1 S2, GI: soft, normoactive bowel sounds, : No Renal angle tenderness; EXTREMITIES: No edema, no clubbing, MUSCULOSKELETAL: no muscle wasting NEURO: Awake; no lateralizing signs. SKIN: No Rash PSYCH; Flat affect Assessment & Plan Assessment/Plan (1) Acute exacerbation of chronic obstructive pulmonary disease: (2) Atypical pneumonia: PLAN: Plan Patient is an 83-year-old lady admitted with progressive shortness of breath. Chest x-ray did demonstrate hyperinflation as well as findings suggestive of mild degree of congestive heart failure. Admitted to monitored bed for further management 1. COPD with acute exacerbation ? Patient admitted to monitored bed managed with bronchodilator treatment steroid as well as antibiotics in addition to supplemental oxygen titrated to keep saturation greater than 91. ? 06/27/2023 patient seen still remains dyspneic at rest requiring 6 L with ambulation patient normally wears 2 L as needed for home activity 2. Acute congestive heart failure with preserved ejection fraction ? Checks x-ray obtained demonstrated vascular congestion suggestive of CHF ? Ordered BMP as well as a 2D echo ? 06/27/2023 echo obtained results are as below Left ventricular systolic function is hyperdynamic. The left ventricular ejection fraction is 70 %. Diastolic function is indeterminate. The left atrium is mildly enlarged. Moderate mitral annular calcification. Mild (1+) mitral valve insufficiency Mild tricuspid valve insufficiency.. Right ventricular systolic pressure estimated to be 49 mmHg. 3. Osteoporosis ? Patient is on denosumab 4. Chronic hypoxic respiratory failure secondary to COPD ? Patient is on 2 L of oxygen at home continuous 5. GERD ? On PPI 6. DVT prophylaxis - On enoxaparin Time spent in the patient's overall evaluation,decision-making process, review of diagnostic data, adjustment of management, discussion with other providers, nursing nursing and ancillary staff involved in patient's care documentation, 50 Minutes Charges/Coding Visit Charges Inpatient E&M: 96554 Subs Hosp L2
[2023-06-28] MEDS: Enoxaparin 40 MG/0.4 ML Syringe SC (10:00)
[2023-06-28] MEDS: predniSONE 20 MG Tablet 40 MG PO (10:02)
[2023-06-28] MEDS: Furosemide 20 MG Tablet PO (10:02)
[2023-06-28] MEDS: Pantoprazole Sodium 40 MG Tablet PO (10:03)
[2023-06-28] MEDS: Citalopram 10 MG Tablet PO (10:03)
[2023-06-28] MEDS: Benzonatate 100 MG Capsule PO (10:08)
--- NOTE | 2023-06-28 12:15 | DS.PCM_ITS ---
Providers Date of Admission: 06/26/23 Date of Discharge: 06/28/23 Primary Care Physician: ETELVINA Monteiro Reason For Visit: COPD EXACERBATION Diagnosis Discharge Diagnosis (1) Acute exacerbation of chronic obstructive pulmonary disease: Status: Chronic Code(s): J44.1 - Chronic obstructive pulmonary disease with (acute) exacerbation (2) Atypical pneumonia: Status: Acute Code(s): J18.9 - Pneumonia, unspecified organism Plan Patient is an 83-year-old lady admitted with progressive shortness of breath. Chest x-ray did demonstrate hyperinflation as well as findings suggestive of mild degree of congestive heart failure. Admitted to monitored bed for further management 1. COPD with acute exacerbation ? Patient admitted to monitored bed managed with bronchodilator treatment steroid as well as antibiotics in addition to supplemental oxygen titrated to keep saturation greater than 91. ? 06/27/2023 patient seen still remains dyspneic at rest requiring 6 L with ambulation patient normally wears 2 L as needed for home activity 2. Acute congestive heart failure with preserved ejection fraction ? Checks x-ray obtained demonstrated vascular congestion suggestive of CHF ? Ordered BMP as well as a 2D echo ? 06/27/2023 echo obtained results are as below Left ventricular systolic function is hyperdynamic. The left ventricular ejection fraction is 70 %. Diastolic function is indeterminate. The left atrium is mildly enlarged. Moderate mitral annular calcification. Mild (1+) mitral valve insufficiency Mild tricuspid valve insufficiency.. Right ventricular systolic pressure estimated to be 49 mmHg. 3. Osteoporosis ? Patient is on denosumab 4. Chronic hypoxic respiratory failure secondary to COPD ? Patient is on 2 L of oxygen at home continuous 5. GERD ? On PPI 6. DVT prophylaxis - On enoxaparin Time spent in the patient's overall evaluation,decision-making process, review of diagnostic data, adjustment of management, discussion with other providers, nursing nursing and ancillary staff involved in patient's care documentation, 35 Minutes Medications at Discharge Home Medications citalopram 10 mg tablet 10 mg PO DAILY depression 11/03/14 hfkbkrkw-vlv-dqvhi acid 0.4 mg-lycopene 300 mcg-lutein 250 mcg tablet 1 ea PO DAILY 11/03/14 Oxygen, Home [Home Oxygen] 2 l inhalation DAILY 11/04/14 Culturelle Capsule 1 cap PO QODAY probiotic 06/02/15 albuterol sulfate 2.5 mg/3 mL (0.083 %) solution for nebulization 2.5 mg (3 mL) inhalation Q2H PRN PRN DYSPNEA ##1 06/03/15 albuterol sulfate 90 mcg/actuation aerosol inhaler 2 puff inhalation Q4H PRN PRN Shortness Of Breath ##1 06/03/15 guaifenesin 600 mg tablet, extended release 12 hr 600 mg PO BID #30 tabs 06/03/15 pantoprazole 40 mg tablet,delayed release 40 mg PO DAILY #30 tabs 06/03/15 tiotropium bromide 18 mcg capsule with inhalation device 1 puff inhalation DAILY ##1 06/03/15 fluticasone furoate 200 mcg-vilanterol 25 mcg/dose inhalation powder 1 ea IH DAILY COPD 10/21/17 dupilumab 300 mg/2 mL subcutaneous syringe ([employer]) 300 mg subcut QWEEK 06/25/23 benzocaine 6 mg-menthol 10 mg lozenges (Chloraseptic Sore Throat) 2 ilan mucous membrane Q2H PRN PRN Sore Throat #30 ea 06/28/23 benzonatate 100 mg capsule 100 mg PO TID PRN PRN COUGH #30 caps 06/28/23 levofloxacin 750 mg tablet 750 mg PO Q48@0600 #3 tabs 06/28/23 prednisone 20 mg tablet 40 mg (2 x 20 mg) PO BREAKFAST #10 tabs 06/28/23 Hospital Course Summary of Care Provided Minutes Spent on Discharge: 35 Physical Exam Narrative GENERAL: cooperative HEENT: Atraumatic; normocephalic EYES; Anicteric, Normal Conjunctiva NECK; supple, normal thyroid, RESPIRATORY: Diminished to auscultation CARDIOVASCULAR: Regular S1 S2, GI: soft, normoactive bowel sounds, : No Renal angle tenderness; EXTREMITIES: No edema, no clubbing, MUSCULOSKELETAL: no muscle wasting NEURO: Awake; no lateralizing signs. SKIN: No Rash PSYCH; Flat affect Weight / BMI Weight Weight: 58.2 kg Body Mass Index (BMI) 25.9 ABG / Lab / Microbiology Data 06/28/23 05:35 06/28/23 05:35 Laboratory: Laboratory Results - last 24 hr 06/28/23 05:35: WBC 21.0 H, RBC 3.92 L, Hgb 11.0 L, Hct 34.2 L, MCV 87.2, MCH 28.1, MCHC 32.2, RDW Std Deviation 42.6, RDW Coeff of Radha 13.4, Plt Count 377, MPV 10.9, Immature Gran % (Auto) 1.800 H, Neut % (Auto) 86.1 H, Lymph % (Auto) 6.9 L, [place] % (Auto) 5.0, Eos % (Auto) 0.0, Baso % (Auto) 0.2, Absolute Neuts (auto) 18.0 H, Absolute Lymphs (auto) 1.45, Nucleated RBC % 0, Sodium 131 L, Potassium 3.5, Chloride 93 L, Carbon Dioxide 28.0, Anion Gap 10, BUN 27 H, Creatinine 1.50 H, Estim Creat Clear Calc 26.11, Est GFR (MDRD) Af Amer 43 L, Est GFR (MDRD) Non-Af 35 L, BUN/Creatinine Ratio 18.0, Glucose 157 H, Calcium 8.9 Microbiology: Microbiology 06/26/23 13:00 Sputum, Expectorated/Coughed Gram Stain - Final 06/26/23 13:00 Sputum, Expectorated/Coughed Respiratory Culture - Final Mixed normal respiratory dominic. No Streptococcus pneumoniae, beta-hemolytic Streptococcus or Staphylococcus aureus isolated. 06/26/23 03:30 Urine, Clean Catch Legionella Antigen - Final 06/26/23 03:30 Urine, Clean Catch Streptococcus pneumoniae Antigen (M - Final 06/25/23 13:05 Nasal Secretion SARS-CoV-2 & FLU Antigen (Rapid) - Final D/C Instructions Discharge Diet: No restrictions Discharge Activity: Return to Normal Activity Call your doctor if you observe: Fever of 101 or Higher, Shortness of breath, Fainting spells and Chest pain Meaningful Use Info Meaningful Use Diagnoses (Choose all that apply): None applicable Discharge Plan Admission Admit Date/Time: 06/26/23 16:01 Attending Provider: Chadd Lester Primary Care Provider: Darleen Mcarthur Consulting Providers: Emigdio Silverman Discharge Orders/Prescriptions Prescriptions: New prednisone 20 mg Tablet 40 mg PO BREAKFAST Qty: 10 0RF benzonatate 100 mg Capsule 100 mg PO TID PRN PRN (Reason: COUGH) Qty: 30 0RF levofloxacin 750 mg Tablet 750 mg PO Q48@0600 Qty: 3 0RF Chloraseptic Sore Throat 6-10 mg Lozenge 2 ilan mucous membrane Q2H PRN PRN (Reason: Sore Throat) Qty: 30 0RF Continued citalopram 10 MG tablet 10 mg PO DAILY Patient Comments: depression ucsndygv-yrx-ER-lycopen-lutein 1 EACH tablet 1 ea PO DAILY Patient Comments: supplement Oxygen, Home [Home Oxygen] 2 l INHALATION DAILY Patient Comments: breathing Culturelle Capsule capsule 1 cap PO QODAY Patient Comments: Probiotic albuterol sulfate 2.5 MG/3 ML solution for nebulization 2.5 mg INHALATION Q2H PRN PRN (Reason: DYSPNEA) Qty: 1 0RF Patient Comments: breathing pantoprazole 40 MG tablet 40 mg PO DAILY Qty: 30 0RF Patient Comments: stomach albuterol sulfate 1 INHALER inhaler 2 puff INHALATION Q4H PRN PRN (Reason: Shortness Of Breath) Qty: 1 0RF Patient Comments: breathing tiotropium bromide 1 PUFF inhaler 1 puff INHALATION DAILY Qty: 1 0RF Patient Comments: breathing guaifenesin 600 MG tablet 600 mg PO BID Qty: 30 0RF Patient Comments: cough - mucus fluticasone furoate-vilanterol 1 EACH blister with device 1 ea IH DAILY Dupixent Syringe 300 mg/2 mL syringe 300 mg SUBCUT QWEEK Referrals / Follow Up: Darleen Mcarthur PA [Primary Care Provider] - Disposition Disposition (needs filled in before D/C Order can be placed): Home, Self Care Charges/Coding Visit Charges Inpatient E&M: 56757 Disch Hosp >30min
--- NOTE | 2023-06-28 12:35 | CASEMGMT ---
Patient has order for discharge. Patient needing 3 lpm with ambulation. Patient has portable in car. Updated script received and sent to [facility] through [facility]. Patient denies needs at discharge, has help at home. Patient denies HHC as she is not homebound. Patient denied further needs. Patient updated to follow-up with PCP for further needs. Patient had no further questions or concerns at this time.
== END 2023-06-28 14:10 | disposition home or self-care (01) | DRG 190 ==
LOC: ED 16:48 → PCU 17:41
PROVIDERS: Admitting Provider Family Medicine; Emergency Provider Emergency Medicine; PCP Physician Assistant; Referring Provider Emergency Medicine; Visit Provider Internal Medicine
DX: J44.1 Chronic obstructive pulmonary disease with (acute) exacerbation (principal); I50.31 Acute diastolic (congestive) heart failure; J96.11 Chronic respiratory failure with hypoxia; Z99.81 Dependence on supplemental oxygen; K21.9 Gastro-esophageal reflux disease without esophagitis; M81.0 Age-related osteoporosis without current pathological fracture; Z79.51 Long term (current) use of inhaled steroids; Z79.899 Other long term (current) drug therapy; Z87.891 Personal history of nicotine dependence
CPT/HCPCS: 36415; 71046; 80048; 83735; 83880; 84100; 85025; 87070; 87205; 87428; 87449; 93005; 93306; 94640; 94668; 99285; A4216; J1940

== ENCOUNTER → 2024-01-06 | Outpatient (CLI) | payer MEDICARE, OTHER, SELFPAY ==
[2024-01-06 15:24] LABS: Hematocrit 39.5 % (37-47); Hemoglobin 12.6 g/dL (12.0-15.0); Mean Corp Hgb Conc 31.9 g/dL (32-36); Mean Corpuscular Hgb 28.7 pg (27.0-32.0); Mean Platelet Vol. 11.6 fl (6.2-12.0); Platelet Count 290 K/mm3 (150-450); RBC Distribution Width CV 13.4 % (11.6-14.6); RBC Distribution Width SD 44.5 fl (35.1-43.9); Red Blood Count 4.39 M/mm3 (4.2-5.4)
== END | disposition home or self-care (01) ==
LOC: MTLAB 13:28
PROVIDERS: PCP Physician Assistant; Referring Provider Internal Medicine Pulmonary Disease; Visit Provider Internal Medicine Pulmonary Disease
DX: R06.02 Shortness of breath (principal)
CPT/HCPCS: 36415; 85027

== ENCOUNTER 2024-06-30 13:30 | Day surgery (SDC) | payer MEDICARE, OTHER, SELFPAY ==
[2024-06-30] VITALS (8 sets, daily range): BP systolic 102–150; BP diastolic 68–79; PULSE 75–98; RESP 16; TEMP 36.3–36.9; O2SAT 95–99; BMI 24.6
--- NOTE | 2024-06-30 | IMM_PTH ---
PATIENT: QUYNH LIN LOC: EN U#:[id number] AGE/SX: 84/F ROOM: RE06/30/[address]: Dr. Pio Brown DO : 1940 BED: DIS: 06/30/2024 SPEC #: [id number] RECD: 07/02/24 10:41 STATUS: FAVIAN REQ #: [id number] JOSE: 06/30/24 00:[address]: Pio Brown DEPT: IMMUNOHISTOCHEMISTRY RECD BY: Eduar Welch ENTERED: 07/02/24 10:41 SP TYPE: IMMUNO OT DR: No Primary Care Phys Tissues: Esophagus, NOS Procedures: P53 (initial) KI-67 (add) PHYSICIAN & INSTITUTION [place] [address] SPECIMEN INFORMATION: Tissue Source: Distal esophagus biopsy Clinical Info: Rosario's esophagus, GERD Specimen Number: [id number] CPT code: 82672,97332 METHODOLOGY: Deparaffinized sections of prefer/formalin-fixed tissue or PAP/DQ stained slides are incubated with monoclonal/polyclonal antibodies/oligonucleotide probes. Localization is made via biotin free immunoperoxidase method. Appropriate controls are performed and reacted as expected. Results on target cell population are indicated in the following table: RESULTS: ANTIBODY / CLONE RESULT P53 (DO-7) negative (null pattern) Ki-67 (30-9) positive, low These tests were developed and their performance characteristics determined by [facility]. They may not have been cleared or approved by the U.S. Food and Drug Administration. The FDA has determined that such clearance or approval is not necessary. The above immunohistochemical/dualISH markers are ordered and reviewed by the Pathologist. INTERPRETATION: Distal esophagus, biopsy: Negative for dysplasia. 07/03/2024
--- NOTE | 2024-06-30 14:08 | PCM.PRE.AN2 ---
ASA Classification* ASA Classification ASA Classification: 3 Assessment & Plan Anesthesia* Anesthesia Assessment Anesthesia Assessment: Discussed sedation and/or anesthesia options, risks, benefits, and alternatives with patient/parents/legal guardian/POA. Questions invited. The patient/parents/legal guardian/POA seems to understand and agrees to proceed with anesthesia plan. Reviewed the physical assessment, medical history, allergy history and patient home medications list prior to surgery/procedure/anesthetic and documented any changes. Performed airway and anesthesia risk assessments. Anesthesia Type Anesthesia Type: MAC Anesthesia Focused Assessment* Temperature: 97.4 F Pulse Rate: 91 Blood Pressure: 150/79 Respiratory Rate: 16 Pulse Ox: 95 Airway Assessment Mouth opens: >3 cm Mallampati Score: II Focused Labs Anesthesia Preop lab: CBC WBC 7.0 K/mm3 (4.4-11.0) 01/06/24 13:30 RBC 4.39 M/mm3 (4.2-5.4) 01/06/24 13:30 Hgb 12.6 g/dL (12.0-15.0) 01/06/24 13:30 Hct 39.5 % (37-47) 01/06/24 13:30 Plt Count 290 K/mm3 (150-450) 01/06/24 13:30 CHEMISTRY Potassium 3.5 mmol/L (3.5-5.1) 06/28/23 05:35 Sodium 131 mmol/L (136-145) L 06/28/23 05:35 Magnesium 2.0 mg/dL (1.6-2.6) 06/27/23 05:18 Phosphorus 3.4 mg/dL (2.5-4.9) 06/27/23 05:18 BUN 27 mg/dL (7-18) H 06/28/23 05:35 Creatinine 1.50 mg/dL (0.55-1.02) H 06/28/23 05:35 Glucose 157 mg/dL (74-106) H 06/28/23 05:35 POC Glucose 155 mg/dL (70-110) H 10/24/17 11:21 COAG Pre-Assessment Diagnosis/Proposed Procedure Planned Operative Procedure(s): egd Anesthesia History 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 When Was Last Pacemaker Check QUESTION #4 FULL TEXT: You/Your Family Experience fever (hyperthermia) with Anesthesia Last Oral Intake Last Oral intake: Last Oral Intake NPO since 09:00 06/30/24 13:50 Meds taken in AM with sips of Yes 06/30/24 13:50 water? Meds patient instructed to see mar 06/30/24 13:50 take am of surgery PONV PONV - data coder operator: PONV - data coder operator Female Yes 06/25/24 09:32 HX of Motion Sickness No 06/25/24 09:32 HX of N/V After Surgery No 06/25/24 09:32 Non-Smoker Yes 06/25/24 09:32 Duration of Surgery greater No 06/25/24 09:32 than 60 minutes Number of Risk Factors 2 06/25/24 09:32 PONV Score Moderate Risk 06/25/24 09:32 Height & Weight Height & Weight: Anesthesia: Height & Weight Height 4 ft 11 in 06/30/24 13:50 Weight: 55.338 kg 06/30/24 13:50 Body Mass Index (BMI) 24.6 06/30/24 13:50 Respiratory Assessment Respiratory Assessment - data coder operator: Respiratory Tract Infection Hx - data coder operator Hx Respiratory Tract Infection No 06/25/24 09:32 STOP Sleep Apnea STOP Sleep Apnea - data coder operator: STOP Sleep Apnea - data coder operator Hx Hypertension No 06/25/24 09:32 Hx Sleep Apnea No 06/25/24 09:32 CPAP No 06/25/24 09:32 BIPAP No 06/25/24 09:32 Do you snore loudly (louder No 06/25/24 09:32 than talking or can be heard Do you often feel tired/ No 06/25/24 09:32 fatigued/ sleepy during daytime? Has anyone observed you stop No 06/25/24 09:32 breathing during sleep? STOP Results Negative 06/25/24 09:32 QUESTION #5 FULL TEXT : Do you snore loudly (louder than talking or can be heard through closed doors)? Tobacco Use History Tobacco Use History - data coder operator: Tobacco Use History - data coder operator Tobacco Use Non-smoker 08/01/22 14:29 Smoking Status Former smoker 06/25/24 09:32 Hx Tobacco Use No 06/25/24 09:32 Years Smoking Packs Smoked per Day Smoking Cessation Date was No - quit smoking greater 06/25/24 09:32 within the last 15 years than 15 years ago Hx Smoking Cessation Date 07/22/07 06/25/24 09:32 Hx Smoking Cessation Counseling Hematologic Medial History Hematologic Hx - data coder operator: Hematologic Medical Hx - technical documentation specialist Hx of Blood Transfusion No 06/25/24 09:32 Hx of Transfusion in last 3 No 06/25/24 09:32 Months Date of Last Transfusion (if within last 3 months) Ever experience any problems No 06/25/24 09:32 with transfusion(s)? Specify any problems Hx of Preganancy in last 3 N/A 06/25/24 09:32 Months Nurse Filling Out Transfusion NBUCHER 06/25/24 09:32 & Questions: Date: 06/25/24 06/25/24 09:32 Time: 09:36 12 09:32 Patient unable to answer at this time (ie. 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 Former smoker On home oxygen therapy COPD (chronic obstructive pulmonary disease) Home Medications ?Medication ?Instructions ?Recorded ?Last Taken ?Type dqmsxwny-nad-cgyza acid 0.4 1 ea PO DAILY 11/03/14 06/24/23 History mg-lycopene 300 mcg-lutein 250 mcg tablet Oxygen, Home [Home Oxygen] 2 l inhalation DAILY 11/04/14 Unknown History albuterol sulfate 2.5 mg/3 mL 2.5 mg (3 mL) inhalation Q2H PRN 06/03/15 06/24/23 Rx (0.083 %) solution for nebulization PRN DYSPNEA ##1 albuterol sulfate 90 mcg/actuation 2 puff inhalation Q4H PRN PRN 06/03/15 06/24/23 Rx aerosol inhaler Shortness Of Breath ##1 guaifenesin 600 mg tablet, 600 mg PO BID #30 tabs 06/03/15 06/24/23 Rx extended release 12 hr tiotropium bromide 18 mcg capsule 1 puff inhalation DAILY ##1 06/03/15 06/24/23 Rx with inhalation device fluticasone furoate 200 1 ea IH DAILY COPD 10/21/17 06/30/24 History mcg-vilanterol 25 mcg/dose inhalation powder benzocaine 6 mg-menthol 10 mg 2 ilan mucous membrane Q2H PRN PRN 06/28/23 Unknown Rx lozenges (Chloraseptic Sore Throat) Sore Throat #30 ea benzonatate 100 mg capsule 100 mg PO TID PRN PRN COUGH #30 06/28/23 Unknown Rx caps Lactobacillus rhamnosus GG 10 1 cap PO QDAY 05/04/24 Unknown History billion cell capsule (Culturelle) acetaminophen 325 mg capsule 325 mg PO Q4-6H PRN pain 05/04/24 Unknown History cholecalciferol (vitamin D3) 125 125 mcg PO QDAY 05/04/24 Unknown History mcg (5,000 unit) capsule budesonide 9 mg tablet,delayed and 9 mg PO QAM eosinophilic 05/19/24 Unknown Rx extended release esophagitis #30 ea pantoprazole 40 mg tablet,delayed 40 mg PO BID #60 tabs 05/19/24 06/30/24 Rx release Allergy/AdvReac Type Severity Reaction Status Date / Time latex Allergy Other Verified 06/30/24 13:49 Penicillins Allergy PT UNSURE Verified 06/30/24 13:49 OF REACTION amoxicillin trihydrate (From AdvReac Diarrhea Verified 06/30/24 13:49 Augmentin) potassium clavulanate (From AdvReac Diarrhea Verified 06/30/24 13:49 Augmentin) Family History Brother Cancer prostate Parkinson disease COPD (chronic obstructive pulmonary disease) Daughter Fibromyalgia Mother , in MVA Diabetes Father COPD (chronic obstructive pulmonary disease) Tuberculosis Other Heart disease Surgical History History of cataract extraction with lens replacement History of carpal tunnel release of both wrists History of esophagogastroduodenoscopy (EGD) History of colonoscopy s/p lumbar surgery Social History Smoking Status: Former smoker alcohol intake: current substance use type: does not use Review of Systems (Anesthesia) ROS Narrative System reviewed and no additional complaints, except as documented.
--- NOTE | 2024-06-30 14:08 | PCM.HP.BLA ---
History and Physical Date of Admission: 06/30/24 Chief Complaint: Rosario's Esophagus Details: QUYNH LIN, is a 84 F who presents to the office today for establishment with [facility] for complaints of irritating cough, some dysphagia, and need for repeat EGD for a history of LSBE. She reports last EGD January 2017. She does complain of loose dentures that cause some difficulty chewing and the dysphagia is not all the time or with any particular food on a consistent basis. She denies nausea, vomiting, heartburn, reflux, abdominal pain, hematochezia and melena. She reports occasional bloating and excessive gas. She states that her bowel pattern is inconsistent and will fluctuate between formed and loose. She denies knowing of any food sensitivities or allergies. She also has a medical history of COPD and occasional use of supplemental oxygen. ROS Const Constitutional: No chills, excessive sweating, fever(s) or frequent falls Eyes Eyes: No change in vision ENT ENT: Positive for difficulty swallowing; No abnormal hearing Resp Respiratory: Positive for cough and change in phlegm color Cardio Cardiology: No chest pain at rest, chest pain with exertion, leg pain with exertion or excessive sweating Gastro GI: Positive for bloating, change in bowel habits and difficulty swallowing; No abdominal pain, belching, change in stool character, coffee ground emesis, constipation, cramping, diarrhea, heartburn, feeling full early, excessive flatus, incontinent of stools, Vomiting blood/hematemesis, Blood in stool, loose stools, Black,tarry stools, nausea/dyspepsia, pain with swallowing, vomiting or other Genitourinary-Female: No difficulty urinating Musc Musculoskeletal: No abnormal gait or leg pain with exertion Skin Skin: No yellowing of the eye or itchy eyes Neuro Neurology: No abnormal gait, abnormal hearing or frequent falls Endo Endocrine: No cold intolerance, excessive sweating or heat intolerance Aller/Imm Allergy/Immunologic: No food intolerance or itchy eyes Robel/Lymp Hematologic/Lymphatic: Positive for easy bruising; No easy bleeding Exam Const General: cooperative, healthy appearing, comfortable and no acute distress Nutritional Appearance: average body habitus Orientation: alert HENCA Head: normal to inspection Ears: hearing grossly normal bilaterally Nose: external nose normal Face and sinus: normal facial exam and face symmetric Teeth and gingiva: dentures Eyes General: appearance normal, both eyes and all related structures Sclera: sclerae normal Neck Neck: normal visual inspection and full ROM Neck mass: No Chest Chest palpation & inspection: normal inspection of the chest Resp Effort & Inspection: normal respiratory effort, able to speak in complete sentences and symmetric chest movement GI Inspection: normal to inspection Auscultation: normal bowel sounds Palpation: soft Skin General: no rashes or lesions noted Neuro General: patient alert, patient awake, patient oriented x3 and moves all extremities Cognition: normal cognition Speech: speech normal Gait: normal gait Extrem General: full ROM Psych Appearance: well kempt Mental Status: mental status grossly normal Mood: congruent mood Affect: normal affect Speech and Movement: speech and movement normal Attitude: cooperative Thought Process: normal Assessment and Plan Assessment and Plan (1) Rosario esophagus: Status: Acute Qualifiers: 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 Qualified Code(s): 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 (2) GERD (gastroesophageal reflux disease): Status: Chronic Qualifiers: Esophagitis presence: with esophagitis Esophagitis bleeding: without hemorrhage Qualified Code(s): K21.00 - Gastro-esophageal reflux disease with esophagitis, without bleeding Medications: New budesonide DR-ER 9 mg PO QAM 30 ea 0RF eosinophilic esophagitis Changed From pantoprazole 40 mg PO DAILY 30 tabs 0RF To pantoprazole 40 mg PO BID 60 tabs 0RF Discontinued dupilumab (Dupixent) Discontinued Reason: Pt no longer taking 300 mg subcut QWEEK prednisone Discontinued Reason: Order Completed 40 mg (2 x 20 mg) PO BREAKFAST 10 tabs 0RF Plan QUYNH LIN, is a 84 F who presents to the office today for establishment with [facility] for complaints of irritating cough, some dysphagia, and need for repeat EGD for a history of LSBE. Differential diagnoses include: EoE, GERD, worsening esophagitis, esophageal dysmotility. Discussed plan with her. increase pantoprazole 40mg PO BID budesonide 9mg PO daily EGD for evaluation call office in 1month to discuss symptoms office follow-up 3months I have examined the patient and the H&P has been reviewed. There are no clinical changes since date of exam.
--- NOTE | 2024-06-30 14:45 | EGD_PTH ---
PATIENT: QUYNH LIN LOC: EN U#:[id number] AGE/SX: 84/F ROOM: RE06/30/[address]: Dr. Pio Brown DO : 1940 BED: DIS: 06/30/2024 SPEC #: [id number] RECD: 06/30/24 18:11 STATUS: FAVIAN JUDIE #: [id number] JOSE: 06/30/24 14:[address]: Pio Brown DEPT: SURGICAL PATHOLOGY RECD BY: Jazmín Franklin ENTERED: 07/01/24 07:13 SP TYPE: EGD BIOPSY OT DR: Kavita Primary Care Phys Tissues: Esophagus, NOS Procedures: Special Stain Group I Surgery Specimen Level IV Alcian Blue/PAS (control) HEADER OPERATION: EGD with biopsy PRE-OP DIAGNOSIS: Rosario's esophagus, GERD TISSUE SUBMITTED: Distal esophagus biopsy MICROSCOPIC DIAGNOSIS Distal esophagus, biopsy: Fragments of gastroesophageal mucosa with focal intestinal metaplasia (goblet cell metaplasia) consistent with Rosario's esophagus. Moderate chronic inflammation. Negative for dysplasia. See comment. 07/02/2024 COMMENT Immunohistochemistry ([id number]) for P53 and Ki-67 will be performed and results will be reported separately. Alcian blue/PAS stain with matched control is used in the evaluation of the specimen. MICROSCOPIC DESCRIPTION Slides are reviewed. GROSS DESCRIPTION Received in fixative is one container labeled with the patient's name and designated Distal esophagus biopsy. The specimen consists of multiple irregular fragments of light cruz soft tissue that in aggregate measure 1.0 x 0.3 x 0.1 cm. The specimen is totally submitted in one cassette. 07/01/2024 TC:3 CPT:40454,23945
--- NOTE | 2024-06-30 15:37 | OP.EGD_ITS ---
Patient Name: Zahraa Hermosillo Procedure Date: 06/30/2024 3:17 PM Date of : 1940 Age: 84 Procedure: Upper GI endoscopy Indications: Dysphagia Providers: Pio Brown DO Referring MD: No Primary Care Physician Medicines: Monitored Anesthesia Care Patient Profile: This is an 84 year old female. Refer to note in patient chart for documentation of history and physical. Patient has symptoms of chronic dysphagia. Complications: No immediate complications. Procedure: Pre-Anesthesia Assessment: - Prior to the procedure, a History and Physical was performed, and patient medications and allergies were reviewed. The patient is competent. The risks and benefits of the procedure and the sedation options and risks were discussed with the patient. All questions were answered and informed consent was obtained. Patient identification and proposed procedure were verified by the physician in the pre-procedure area. Mental Status Examination: alert and oriented. Airway Examination: normal oropharyngeal airway and neck mobility. Respiratory Examination: clear to auscultation. CV Examination: normal. Prophylactic Antibiotics: The patient does not require prophylactic antibiotics. Prior Anticoagulants: The patient has taken no anticoagulant or antiplatelet agents except for NSAID medication. ASA Grade Assessment: II - A patient with mild systemic disease. After reviewing the risks and benefits, the patient was deemed in satisfactory condition to undergo the procedure. The anesthesia plan was to use monitored anesthesia care (MAC). Immediately prior to administration of medications, the patient was re-assessed for adequacy to receive sedatives. The heart rate, respiratory rate, oxygen saturations, blood pressure, adequacy of pulmonary ventilation, and response to care were monitored throughout the procedure. The physical status of the patient was re-assessed after the procedure. After obtaining informed consent, the endoscope was passed under direct vision. Throughout the procedure, the patient's blood pressure, pulse, and oxygen saturations were monitored continuously. The Endoscope was introduced through the mouth, and advanced to the second part of duodenum. The upper GI endoscopy was accomplished without difficulty. The patient tolerated the procedure well. Scope In: 3:29:58 PM Scope Out: 3:33:02 PM Total Procedure Duration Time 0 hours 3 minutes 4 seconds Findings: There were esophageal mucosal changes consistent with long-segment Rosario's esophagus present in the lower third of the esophagus. The maximum longitudinal extent of these mucosal changes was 7 cm in length. Mucosa was biopsied with a cold forceps for histology in a targeted manner at intervals of 1 cm in the lower third of the esophagus. One specimen bottle was sent to pathology. Verification of patient identification for the specimen was done. Estimated blood loss was minimal. A large hiatal hernia was present. Multiple hyperplastic polyps with no bleeding and no stigmata of recent bleeding were found in the gastric body. No gross lesions were noted in the first portion of the duodenum. Impression: - Esophageal mucosal changes consistent with long-segment Rosario's esophagus. Biopsied. - Large hiatal hernia. - Multiple gastric polyps. - No gross lesions in the first portion of the duodenum. Recommendation: - Discharge patient to home. - Resume previous diet. - Continue present medications. - Await pathology results. Procedure Code(s): --- Professional --- 75156, Esophagogastroduodenoscopy, flexible, transoral; with biopsy, single or multiple CPT copyright 2021 [employer]. All rights reserved. The codes documented in this report are preliminary and upon water team leader review may be revised to meet current compliance requirements. Pio Brown DO 06/30/2024 3:37:21 PM This report has been signed electronically. Number of Addenda: 0 Note Initiated On: 06/30/2024 3:17 PM
--- NOTE | 2024-06-30 15:38 | OP.CCLET_ITS ---
06/30/2024 No Primary Care Physician Re : Upper GI endoscopy procedure for Zahraa Hermosillo Dear Care Physician This procedure was performed on Sunday, June 30, 2024. My impressions and recommendations are as follows: Impressions : - Esophageal mucosal changes consistent with long-segment Rosario's esophagus. Biopsied. - Large hiatal hernia. - Multiple gastric polyps. - No gross lesions in the first portion of the duodenum. Recommendations : - Discharge patient to home. - Resume previous diet. - Continue present medications. - Await pathology results. My findings are described in the full procedure note, which is enclosed. If I can be of further assistance, please feel free to contact me at . Sincerely, Pio Brown, 06/30/2024 3:37:21 PM This report has been signed electronically.
--- NOTE | 2024-06-30 16:04 | PCM.POST.ANE ---
Anesthesia: Postop Eval I Current Vital Signs Temperature: 97.4 F Pulse Rate: 91 Blood Pressure: 150/79 Respiratory Rate: 16 Pulse Ox: 95 Oxygen Delivery Method: Room Air Assessment Airway patent: Yes Spontaneous unlabored respirations: Yes Mental status: Awake and Calm nausea: No Vomiting: No Anesthesia Complication: No Fluid Hydration Crystalloid volume administer (ml): 30 Total IV fluid infused: 30 Progress Note Anesthesia document: Postop Eval 1 completed: Yes
--- NOTE | 2024-06-30 16:54 | POSTOPAN2_ITS ---
Anesthesia Postop Eval I Sum Postop Eval Completion status Anesthesia document: Postop Eval 1 completed: Yes Anesthesia Postop Eval I Summary Anesthesia Postop Eval I Summary: Anesthesia Postop Eval I: Assessment Summary Airway patent Yes 06/30/24 16:07 HOG ROOM SUPERVISOR.[email or web address] Spontaneous unlabored Yes 06/30/24 16:07 HOG ROOM SUPERVISOR.[email or web address] respirations Mental status Awake,Calm 06/30/24 16:07 HOG ROOM SUPERVISOR.[email or web address] nausea No 06/30/24 16:07 HOG ROOM SUPERVISOR.[email or web address] Vomiting No 06/30/24 16:07 HOG ROOM SUPERVISOR.[email or web address] Anesthesia Postop Eval I: Fluid Summary Crystalloid volume administer 30 06/30/24 16:07 HOG ROOM SUPERVISOR.[email or web address] (ml) Colloids volume administered ( ml) Blood Product volume administered (ml) Total IV fluid infused 30 06/30/24 16:07 HOG ROOM SUPERVISOR.[email or web address] Anesthesia Postop Eval I: Summary Notes Anesthesia Complication No 06/30/24 16:07 HOG ROOM SUPERVISOR.LAVERN Anesthesia Complication Comment: Post-operative progress note Anesthesia: Postop Eval II Evaluation Mental status: Awake and Calm Pain Level: 0 nausea: No Vomiting: No Complications Anesthesia Complication: No
--- NOTE | 2024-06-30 16:54 | PCM.POSTANE2 ---
Anesthesia Postop Eval I Sum Postop Eval Completion status Anesthesia document: Postop Eval 1 completed: Yes Anesthesia Postop Eval I Summary Anesthesia Postop Eval I Summary: Anesthesia Postop Eval I: Assessment Summary Airway patent Yes 06/30/24 16:07 MEDIA MARKETING SPECIALIST.[email or web address] Spontaneous unlabored Yes 06/30/24 16:07 MEDIA MARKETING SPECIALIST.SEFERINOU respirations Mental status Awake,Calm 06/30/24 16:07 MEDIA MARKETING SPECIALIST.FIDELLOU nausea No 06/30/24 16:07 MEDIA MARKETING SPECIALIST.FIDELLOU Vomiting No 06/30/24 16:07 MEDIA MARKETING SPECIALIST.JBLOU Anesthesia Postop Eval I: Fluid Summary Crystalloid volume administer 30 06/30/24 16:07 MEDIA MARKETING SPECIALIST.JBLOU (ml) Colloids volume administered ( ml) Blood Product volume administered (ml) Total IV fluid infused 30 06/30/24 16:07 MEDIA MARKETING SPECIALIST.FIDELLOU Anesthesia Postop Eval I: Summary Notes Anesthesia Complication No 06/30/24 16:07 MEDIA MARKETING SPECIALIST.LAVERN Anesthesia Complication Comment: Post-operative progress note Anesthesia: Postop Eval II Evaluation Mental status: Awake and Calm Pain Level: 0 nausea: No Vomiting: No Complications Anesthesia Complication: No
== END 2024-06-30 16:20 | disposition home or self-care (01) ==
LOC: EN 13:30 → AC 13:32
PROVIDERS: Visit Provider Internal Medicine Gastroenterology
PROC: 0DJ08ZZ Inspection of Upper Intestinal Tract, Via Natural or Artificial Opening Endoscopic (ICD-10-PCS; CPT 43235; principal; 2024-06-30 14:40)
DX: K22.70 Barrett's esophagus without dysplasia (principal); J44.9 Chronic obstructive pulmonary disease, unspecified; K21.00 Gastro-esophageal reflux disease with esophagitis, without bleeding; K31.7 Polyp of stomach and duodenum; K44.9 Diaphragmatic hernia without obstruction or gangrene; Z88.0 Allergy status to penicillin; Z99.81 Dependence on supplemental oxygen; Z87.891 Personal history of nicotine dependence
CPT/HCPCS: 43239; 88305; 88341; 88342; A4216

== ENCOUNTER → 2024-12-25 | Outpatient (CLI) | payer MEDICARE, OTHER, SELFPAY ==
[2024-12-24 18:14] LABS: Absolute Lymphocyte Count 2.24 X10^3/uL (0.83-4.51); Absolute Neutrophil Count 6.3 X10^3/uL (2.0-7.7); Basophil# 0.03 X10^3/uL; Basophil% 0.3 % (0-1); Eosinophil# 0.18 X10^3/uL; Eosinophils% 1.8 % (0-5); Hemoglobin 12.9 g/dL (12.0-15.0); Lymphocyte # 2.24 X10^3/ul (0.83-4.51); Lymphocyte % 22.8 % (19-41); Mean Corp Hgb Conc 32.3 g/dL (32-36); Mean Corpuscular Volume 89.9 fL (81-99); Mean Platelet Vol. 11.9 fl (6.2-12.0); Monocyte# 0.93 X10^3/uL; Monocyte% 9.5 % (0-10); NRBC Flagged by Analyzer 0 % (0-5); Neutrophil # 6.31 X10^3/uL (2.7-7.7); Neutrophil % 64.1 % (47-70); Platelet Count 226 K/mm3 (150-450); RBC Distribution Width CV 13.2 % (11.6-14.6); RBC Distribution Width SD 43.3 fl (35.1-43.9); Red Blood Count 4.45 M/mm3 (4.2-5.4); White Blood Count 9.8 K/mm3 (4.4-11.0)
== END | disposition home or self-care (01) ==
LOC: MTLAB 06-01 16:07
PROVIDERS: PCP Student in an Organized Health Care Education/Training Program; Referring Provider Internal Medicine Pulmonary Disease; Visit Provider Internal Medicine Pulmonary Disease
DX: J44.9 Chronic obstructive pulmonary disease, unspecified (principal)
CPT/HCPCS: 36415; 85025

== ENCOUNTER → 2025-05-14 | Outpatient (CLI) | payer MEDICARE, OTHER, SELFPAY ==
--- NOTE | 2025-05-14 12:53 | RAD_ITS ---
EXAM: XR Cervical Spine, 2 or 3 Views CLINICAL INDICATION: COUGH, COPD TECHNIQUE: Frontal and lateral views of the cervical spine. COMPARISON: No relevant prior studies available. FINDINGS: VERTEBRAE: Unremarkable. No definite fracture. Normal alignment. DISC SPACES: No acute findings. No significant narrowing. SOFT TISSUES: Unremarkable. LUNG APICES: Bibasilar atelectasis or pneumonia. RAD/Chest PA and Lateral IMPRESSION: Bibasilar atelectasis or pneumonia. Reading Location: [id number]
[2025-05-14 15:04] LABS: Hematocrit 39.6 % (37-47); Hemoglobin 13.1 g/dL (12.0-15.0); Immature Granulocytes Count 0.010 X10^3/uL (0.0-0.0); Mean Corp Hgb Conc 33.1 g/dL (32-36); Mean Corpuscular Volume 87.8 fL (81-99); Mean Platelet Vol. 11.5 fl (6.2-12.0); NRBC Flagged by Analyzer 0 % (0-5); Platelet Count 242 K/mm3 (150-450); RBC Distribution Width CV 13.6 % (11.6-14.6); RBC Distribution Width SD 43.8 fl (35.1-43.9); Red Blood Count 4.51 M/mm3 (4.2-5.4); White Blood Count 6.3 K/mm3 (4.4-11.0)
== END | disposition home or self-care (01) ==
LOC: MTLAB 12:52
PROVIDERS: PCP Student in an Organized Health Care Education/Training Program; Referring Provider Internal Medicine Pulmonary Disease; Visit Provider Internal Medicine Pulmonary Disease
DX: J44.9 Chronic obstructive pulmonary disease, unspecified (principal)
CPT/HCPCS: 36415; 71046; 85025